=== PATIENT | male | born 1990 | race Caucasian/White ===

== ENCOUNTER 2020-05-01 11:21 | Outpatient (REF) | payer OTHER, SELFPAY | END 2020-05-01 11:22 | disposition home or self-care (01) | LOC: HO.LAB 11:21 | PROVIDERS: PCP Nurse Practitioner Family; Visit Provider Internal Medicine | DX: Z20.828 Contact with and (suspected) exposure to other viral communicable diseases (principal) | CPT/HCPCS: 87635 ==

== ENCOUNTER 2020-06-03 18:35 | Emergency (ER) | payer OTHER, SELFPAY ==
[2020-06-03 18:37] VITALS: BP 142/93; PULSE 61; RESP 16; TEMP 36.1; O2SAT 99; BMI 35.5
--- NOTE | 2020-06-03 21:37 | CT_ITS ---
EXAMINATION: CT HEAD WITHOUT CONTRAST CLINICAL INFORMATION: Head injury. Headache. Nausea COMPARISON: None TECHNIQUE: Contiguous axial imaging was performed from the skull base to vertex without intravenous administration of contrast. Coronal and sagittal reformatted images are performed at CT scanner This CT examination was performed using dose optimization techniques as appropriate, variously including the following: *Automated exposure control *Adjustment of mA and/or kV according to patient size (this includes techniques or standardized protocols for targeted exams where dose is matched to indication/reason for exam; i.e. extremities or head) *Use of iterative reconstruction technique DLP: 940 mGy-cm FINDINGS: There is no evidence of acute intracranial hemorrhage or territorial infarction. No abnormal mass effect or midline shift is seen. Medeiros to white matter differentiation is well preserved. No extra-axial fluid collections are identified. The ventricles are normal in size. There is no abnormal attenuation within the brain parenchyma. The osseous structures and soft tissues are normal. The mastoid air cells and visualized portions of the paranasal sinuses are well aerated. CT/CT head/brain wo con IMPRESSION: No acute intracranial pathology.
--- NOTE | 2020-06-03 22:29 | ED_ITS ---
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 Denies any other symptoms complaints or concerns at this time. Related Data Previous Rx's Medication Instructions Recorded acetaminophen [Tylenol] 650 mg PO Q6H PRN #10 tab 06/03/20 ondansetron HCl [Zofran] 4 mg PO Q8H PRN #14 tab 06/03/20 Allergies Allergy/AdvReac Type Severity Reaction Status Date / Time No Known Allergies Allergy Verified 06/03/20 20:43 Review of Systems Review of Systems: Constitutional : No changes in activity, No lethargy, No recent prior head injury, No agitation, No increased fussiness ENT/Mouth : No Ear Pain, No Nasal discharge/drainage Eyes: No Eye Pain, No Swelling, No Redness, No Foreign Body, No Vision Changes Cardiovascular : No Chest Pain, No SOB Respiratory : No Cough Gastrointestinal : + Nausea, No Vomiting, No abdominal Pain Genitourinary : No Dysuria, No Urinary Frequency, No Urinary Incontinence, No Urgency, No Flank Pain Musculoskeletal : No joint pain, No neck stiffness, No back pain/injury Skin : No lacerations Neuro : No unsteady gait, No Paresthesias, No Loss of Consciousness, No altered mental status, +Headache Yes all other systems are reviewed and are negative [facility] Past Medical History Attestation statement: The following information was validated with the patient. Medical History No known health problems Social History Social History Smoked in Last 30 Days: No Use of substances other than those prescribed or required for medical reasons: No Advance Directives: No Advance Directives Information Provided: No Physical Exam Vital Signs: Vital Signs: Last Vital Signs Temp 97.0 F 06/03/20 18:37 Pulse 61 06/03/20 18:37 Resp 16 06/03/20 18:37 BP 142/93 H 06/03/20 18:37 Pulse Ox 99 06/03/20 18:37 Body Mass Index 35.5 Vital signs have been reviewed as normal and appeared to be correct. Blood pressure normal. Heart rate normal. Respiration rate normal. Temperature normal. Oxygen saturation normal. Appearance: Alert. Oriented X3. No acute distress. Head: Normal external exam. Normocephalic. Atraumatic. Able to rotate head bilaterally. Eyes: PERRLA. EOMI. No nystagmus noted. Conjunctiva and sclera normal. Eyelids normal. Corneal reflex normal. ENT: EAC normal. TM's Normal. Hearing normal. Pharynx normal. Uvula midline. tongue midline. Moist mucous membranes. No trismus noted. No drooling noted. No muffled voice noted. Neck: Normal inspection. Neck supple. FROM. No adenopathy. Thyroid Normal. No meningeal signs. No neck mass noted. CVS: Normal heart rate and rhythm. Heart sound normal. No murmurs noted. Pulses normal throughout. Respiratory: No respiratory distress. Painless inspiration. Breath sounds n ormal. No wheezes/rales/rhonchi noted. Chest nontender. No accessory muscle usage noted or decreased air movement noted. Abdomen: Soft and nontender. Bowel sounds normal in all 4 quadrants. No diste ntion noted. No organomegaly noted. No visible injury noted. Back: No CVA tenderness. Full range of motion noted. Skin: Skin warm and dry. Normal skin color. Normal skin turgor. No rashes/lesions/lacerations noted. Extremities: No lower extremity edema. Extremities exhibit normal range of motion. Extremities nontender. Able to shrug shoulders bilaterally and keep up against resistance. Neuro: Oriented X 3. No motor deficit. No sensory deficit. Reflexes normal. Moving all extremities. No focal motor deficits. Cranial nerves II-XI intact bilaterally. Facial strength normal. Normal cognition. Speech normal. Gait normal. Strength 5/5 throughout. No pronator drift. No tremor noted. No fasciculations noted. Muscle tone normal throughout. No asterixis noted. Owiwwp-[id number] test normal. Heel to flynn test normal. Tandem gait normal. Does not sway with eyes open. Romberg test negative. Rapid alternating movement upper extremity normal. Rapid alternating movement lower extremity normal. Hand drop from overhead-Mrs. face. No rigidity noted. NIHSS score 0. Course Course Course Narrative: 29-year-old male with head injury no loss of conscious is not on any blood thinners. With complaints of headaches and intermittent nausea. Denies any other symptoms complaints or concerns at this time. CT scan of brain obtained and negative for any acute processes. Patient most likely concussion. Will DC home with symptomatic treatment along with instructions return if any new or worsening symptoms to follow-up with primary care provider. Patient understands agrees the plan. MDM - Head Injury Medical Records Attestation: I reviewed the patient's medical records. Imaging Data CT scan - head: Attestation: I personally reviewed and interpreted this imaging study as follows: Radiologist's impression: MPRESSION: No acute intracranial pathology. Discharge Plan Discharge Clinical Impression: Closed head injury, Concussion without loss of consciousness Patient Disposition: Home, Self-Care Instructions: Concussion (ED) Prescriptions: New acetaminophen [Tylenol] 325 mg tablet 650 mg PO Q6H PRN (Reason: fever or pain) Qty: 10 RF: 0 ondansetron HCl [Zofran] 4 mg tablet 4 mg PO Q8H PRN (Reason: nausea and vomiting) Qty: 14 RF: 0 Referrals: Rl Khalil, TELEPHONE CLERK-BC [Primary Care Provider] - 2 days Stand Alone Forms: Work/School Release Print Language: Georgian
[2020-06-03 22:49] VITALS: BP 132/89; PULSE 66; RESP 16; TEMP 36.6; O2SAT 100
== END 2020-06-03 22:51 | disposition home or self-care (01) ==
PROVIDERS: Emergency Provider Emergency Medicine Emergency Medical Services; PCP Nurse Practitioner Family
DX: S06.0X0A Concussion without loss of consciousness, initial encounter (principal); W22.09XA Striking against other stationary object, initial encounter; Y93.89 Activity, other specified; Y92.810 Car as the place of occurrence of the external cause; Y99.0 Civilian activity done for income or pay
CPT/HCPCS: 70450; 99284

== ENCOUNTER → 2020-06-04 09:26 | Outpatient (BNVA) | payer OTHER, SELFPAY | PROVIDERS: PCP Nurse Practitioner Family; Visit Provider Internal Medicine | DX: S06.0X0A Concussion without loss of consciousness, initial encounter (principal); X58.XXXA Exposure to other specified factors, initial encounter | CPT/HCPCS: 99202 ==

== ENCOUNTER → 2020-06-06 08:26 | Outpatient (BNVA) | payer OTHER, SELFPAY | PROVIDERS: PCP Nurse Practitioner Family; Visit Provider Internal Medicine | DX: S06.9X0D Unspecified intracranial injury without loss of consciousness, subsequent encounter (principal); X58.XXXD Exposure to other specified factors, subsequent encounter | CPT/HCPCS: 99213 ==

== ENCOUNTER → 2020-06-11 11:38 | Outpatient (BNVA) | payer OTHER, SELFPAY | PROVIDERS: PCP Nurse Practitioner Family; Visit Provider Internal Medicine | DX: S06.9X0D Unspecified intracranial injury without loss of consciousness, subsequent encounter (principal); X58.XXXD Exposure to other specified factors, subsequent encounter; R51.9 Headache, unspecified; H57.12 Ocular pain, left eye | CPT/HCPCS: 99213 ==

== ENCOUNTER → 2020-06-18 10:19 | Outpatient (BNVA) | payer OTHER, SELFPAY | PROVIDERS: PCP Nurse Practitioner Family; Visit Provider Internal Medicine | DX: S06.9X0D Unspecified intracranial injury without loss of consciousness, subsequent encounter (principal); X58.XXXD Exposure to other specified factors, subsequent encounter; R51.9 Headache, unspecified; R11.0 Nausea | CPT/HCPCS: 99213 ==

== ENCOUNTER 2021-02-09 20:37 | Emergency (ER) | payer OTHER, SELFPAY ==
--- NOTE | ~2021-02-09 | XR_ITS ---
EXAMINATION: XR ELBOW, RIGHT CLINICAL INFORMATION: Fall yesterday COMPARISON: None TECHNIQUE: AP, lateral, and oblique views of the right elbow. FINDINGS: No fracture or dislocation. No joint effusion. No appreciable degenerative changes. No focal soft tissue swelling. No radiopaque foreign body. XR/XR elbow RT min 3V IMPRESSION: Unremarkable radiographs of the right elbow.
[2021-02-09 20:39] VITALS: BP 138/86; PULSE 82; RESP 18; O2SAT 95; BMI 33.2
--- NOTE | 2021-02-09 21:57 | ED.EXTPRO ---
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 Denies head trauma or LOC. Denies numbness, tingling, weakness. Denies decreased range of motion, injury to the area MD Complaint: joint paint Related Data Previous Rx's Medication Instructions Recorded acetaminophen 325 mg tablet 650 mg PO Q6H PRN #10 tab 06/03/20 (Tylenol) ondansetron HCl 4 mg tablet 4 mg PO Q8H PRN #14 tab 06/03/20 (Zofran) Allergies Allergy/AdvReac Type Severity Reaction Status Date / Time No Known Allergies Allergy Verified 02/09/21 20:39 Review of Systems Review of Systems: Constitutional: No Fever, No Chills Musculoskeletal: + joint pain, No Myalgias, No Joint Swelling Skin: No Skin Lesions, No rash Neuro: No Weakness, No Numbness, No Paresthesias, no headache/head injury, no LOC Yes all other systems are reviewed and are negative [facility] Past Medical History Attestation statement: The following information was validated with the patient. Medical History (Updated 02/09/21 @ 22:00 by BRITNI Suh) No known health problems Family History Family History (Updated 07/18/20 @ 13:32 by Consuelo Gamez, RMA, REHABILITATION WORKER) Father Diabetes mellitus Mother No problems noted. Brother No problems noted. Brother No problems noted. Social History Social History Advance Directives: No Advance Directives Information Provided: Yes Physical Exam Vital Signs: Vital Signs: Last Vital Signs Pulse 82 02/09/21 20:39 Resp 18 02/09/21 20:39 BP 138/86 02/09/21 20:39 Pulse Ox 95 02/09/21 20:39 Body Mass Index 33.2 Const: General: cooperative and healthy appearing Orientation/consciousness: patient oriented x3 Limitations: no limitations HENMT: Head: Yes normal to inspection Ears: hearing grossly normal bilaterally General nose exam: Normal external nose present Face and sinus: Yes normal facial exam Eyes: General: appearance normal, both eyes and all related structures EOM: EOMs intact bilaterally Neck: Neck: Yes normal visual inspection Resp: Effort & Inspection: normal respiratory effort and no respiratory distress Cardio: Rate: regular rate Peripheral pulses: radial pulses present Skin: Rashes: no rashes Neuro: General: patient oriented x3, tone normal and moves all extremities Gait exam (Neuro): Normal gait present Extrem: Other: Superficial abrasions noted to right distal forearm/elbow. +ttp to distal forearm. No swelling/ecchymosis or cellulitis. FROM intact to shoulder/elbow/hand/wrist. NV intact. Supination/pronation intact Course Course Course Narrative: XR elbow RT min 3V IMPRESSION: Unremarkable radiographs of the right elbow. >> results discussed with patient including worrisome signs and symptoms and strict return precautions Discharge Plan Discharge Clinical Impression: Injury of right upper arm Qualifiers: Encounter type: initial encounter Qualified Code(s): S49.91XA - Unspecified injury of right shoulder and upper arm, initial encounter Patient Disposition: Home, Self-Care Instructions: Arthralgia (ED) Additional Instructions: Your x-rays were unremarkable Ice, rest Take Tylenol & Motrin at home for pain If pain persists or worsens, becomes unbearable, you have weakness, numbness, tingling, or fever please return to the ED Prescriptions: No Action acetaminophen [Tylenol] 325 mg tablet 650 mg PO Q6H PRN (Reason: fever or pain) Qty: 10 RF: 0 ondansetron HCl [Zofran] 4 mg tablet 4 mg PO Q8H PRN (Reason: nausea and vomiting) Qty: 14 RF: 0 Referrals: [facility] [Outside] - 1 week (As needed)
== END 2021-02-09 22:09 | disposition home or self-care (01) ==
PROVIDERS: Emergency Provider Emergency Medicine Emergency Medical Services; PCP Nurse Practitioner Family
DX: S49.91XA Unspecified injury of right shoulder and upper arm, initial encounter (principal); M25.511 Pain in right shoulder; W01.0XXA Fall on same level from slipping, tripping and stumbling without subsequent striking against object, initial encounter; Y93.02 Activity, running; Y99.0 Civilian activity done for income or pay; Z79.899 Other long term (current) drug therapy
CPT/HCPCS: 73080; 99283

== ENCOUNTER → 2021-02-10 08:53 | Outpatient (BNVA) | payer OTHER, SELFPAY | PROVIDERS: PCP Nurse Practitioner Family; Visit Provider Internal Medicine | DX: S50.01XA Contusion of right elbow, initial encounter (principal); S46.811A Strain of other muscles, fascia and tendons at shoulder and upper arm level, right arm, initial encounter; W22.8XXA Striking against or struck by other objects, initial encounter | CPT/HCPCS: 99202 ==

== ENCOUNTER 2021-03-18 02:01 | Emergency (ER) | payer OTHER, SELFPAY ==
--- NOTE | ~2021-03-18 | XR_ITS ---
EXAMINATION: XR CHEST CLINICAL INFORMATION: Tachycardia COMPARISON: 07/22/2019 TECHNIQUE: Frontal view of the chest was obtained. FINDINGS: Lungs are hypoinflated. No focal consolidation is seen. No evidence of pneumothorax, pleural effusion, or pulmonary edema. The cardiomediastinal contour is unremarkable. No acute osseous findings are seen. XR/XR chest 1V IMPRESSION: No acute cardiopulmonary findings.
--- NOTE | ~2021-03-18 | US_ITS ---
EXAMINATION: US ABDOMEN LIMITED CLINICAL INFORMATION: Right upper quadrant pain. COMPARISON: 07/03/2019 TECHNIQUE: Real-time imaging of the right upper quadrant abdominal viscera. FINDINGS: PANCREAS: Obscured by overlying bowel gas. LIVER: Limited views of the left lobe due to overlying bowel gas. The liver is normal in size. The liver contour is normal. Parenchymal echogenicity is normal. No focal hepatic lesion identified. There is no intrahepatic biliary duct dilatation seen. GALLBLADDER: The gallbladder is physiologically distended without evidence of stones, sludge, polyps, wall thickening or pericholecystic fluid. COMMON BILE DUCT: Normal in caliber measuring 0.4 cm in diameter. RIGHT KIDNEY: No hydronephrosis. No renal calculi or focal parenchymal lesions. The kidney measures 12.5 cm in maximum dimension. FREE FLUID: None. US/US abdomen limited IMPRESSION: No acute findings identified. Partially limited evaluation due to bowel gas.
[2021-03-18 02:12] VITALS: BP 142/91; PULSE 140; RESP 20; TEMP 36.5; O2SAT 96; BMI 37.4
[2021-03-18 02:24] VITALS: TEMP 37.9
[2021-03-18 02:30] VITALS: PULSE 112; RESP 16; TEMP 37.7
--- NOTE | 2021-03-18 02:32 | ED_ITS ---
HPI - General Adult General Chief complaint: Upper Respiratory Symptoms Stated complaint: covid symptoms Time Seen by Provider: 03/18/21 02:07 Source: patient Mode of arrival: ambulatory History of Present Illness HPI narrative: 30-year-old male without significant past medical history who states that he has been at home taking care of his child who is sick with [id number] and states that this evening he went to bed and felt very warm, tried kicking off the covers, could not get comfortable and then felt as though he might be having a fever and when checked was noted to be 103?. Patient denies any stiff neck and reports being up-to-date on all childhood vaccinations. He states that he took some Tylenol, 650 mg, and then temp to take a cold shower after he had retaken his temperature and noted that it was 104.5. Patient states that he felt very fatigued and tired, however denies any cough, GI or symptoms but does report mild sore throat and denies any ear pain. Related Data Previous Rx's Medication Instructions Recorded acetaminophen 325 mg tablet 650 mg PO Q6H PRN #10 tab 06/03/20 (Tylenol) ondansetron HCl 4 mg tablet 4 mg PO Q8H PRN #14 tab 06/03/20 (Zofran) Allergies Allergy/AdvReac Type Severity Reaction Status Date / Time No Known Allergies Allergy Verified 02/09/21 20:39 Review of Systems Review of Systems: Pertinent positives and negatives as stated in HPI 10 point review of systems is otherwise negative. [facility] Past Medical History Source: nursing notes reviewed Medical History No known health problems Family History Family History Father Diabetes mellitus Mother No problems noted. Brother No problems noted. Brother No problems noted. Social History Social History Advance Directives: No Physical Exam Vital Signs: Vital Signs: Last Vital Signs Temp 99.7 F 03/18/21 05:36 Pulse 104 H 03/18/21 05:36 Resp 16 03/18/21 05:36 BP 133/76 03/18/21 05:36 Pulse Ox 98 03/18/21 05:36 Body Mass Index 37.4 VITAL SIGNS: Reviewed. GENERAL: Well developed, well nourished, in no acute distress. HEAD: Normocephalic/atraumatic, EYES: PERRLA, EOMI EARS: Ext canals without abnormality, TMs non-bulging and non-erythematous NOSE: Nares patent bilateral OROPHARYNX: no oral lesions noted, posterior pharynx clear with noted tonsillar enlargement/erythema/exudates NECK: Supple, no adenopathy LUNGS: Normal breath sounds. No adventitious sounds or accessory muscle use. SpO2<96> CARDIOVASCULAR: Regular rate and rhythm without noted murmurs, no JVD or lower extremity edema. ABDOMEN: Soft, non-tender, non-distended with bowel sounds. SKIN: Inspection of the skin reveals no rashes, but diaphoretic NEUROLOGIC: Alert and oriented x 4. Strength and sensation to light touch were grossly intact x 4. Course Course Course Narrative: 30-year-old male with history and clinical presentation suggestive of possible COVID but patient has limited symptoms and no obvious intra oral or palm/sole rash. Low clinical suspicion for meningitis. Of note, patient was never documented to be febrile here in the emergency room. Review of all investigations otherwise negative for etiology of patient's febrile state. On re-evaluation patient has had complete resolution of his elevated temperature and is feeling much better. On review of lab work there was a noted LFT abnormality and follow-up ultrasound was negative for any acute findings. All results were discussed with the patient at bedside and he was recommended to continue with increasing fluid hydration, alternating Tylenol and ibuprofen and follow-up with primary care provider. Medical Decision Making Lab Data Result diagrams: 03/18/21 03:16 03/18/21 03:16 Labs: Lab Results 03/18/21 03/18/21 03/18/21 Range/Units 02:11 02:40 03:16 WBC 8.9 (4.8-10.8) X10*3/uL RBC 5.49 (4.60-5.80) X10*6/uL Hgb 16.4 (14.0-18.0) g/dl Hct 46.8 (42-52) % MCV 85.2 (80-98) fL MCH 29.9 (27.0-33.0) pg MCHC 35.0 (31.0-36.0) g/dl RDW 11.6 (11.0-16.0) % Plt Count 161 (160-400) X10*3/uL MPV 9.3 L (9.4-12.4) fL Immature Gran % (Auto) 0.2 (0.0-0.4) % Neut % (Auto) 85.1 H (45-73) % Lymph % (Auto) 6.2 L (20-40) % [place] % (Auto) 7.8 (2-11) % Eos % (Auto) 0.5 (0-4) % Baso % (Auto) 0.2 (0-2) % Lymph # (Auto) 0.6 L (1.2-4.9) X10*3/uL [place] # (Auto) 0.7 (0.1-1.2) X10*3/uL Eos # (Auto) 0.0 (0.0-0.4) X10*3/uL Baso # (Auto) 0.0 (0.0-0.2) X10*3/uL Abs Immat Gran (auto) 0.02 (0.00-0.03) X10*3/uL Absolute Neuts (auto) 7.6 (2.0-8.3) X10*3/uL Absolute Nucleated RBC 0.000 (0.0-0.012) X10*3/uL Nucleated RBC % (auto) 0.0 (0.0-0.2) /100WBC Sodium (135-145) mmol/L Potassium (3.3-5.1) mmol/L Chloride (96-108) mmol/L Carbon Dioxide (22-29) mmol/L Anion Gap (12-20) BUN (9-16) mg/dL Creatinine (0.5-1.4) mg/dL Estim Creat Clear Calc Estimated GFR Random Glucose (60-115) mg/dL Calcium (8.4-10.2) mg/dL Total Bilirubin (0.0-1.0) mg/dL AST (5-37) U/L ALT (0-40) U/L Alkaline Phosphatase (39-117) U/L Total Protein (6.5-8.0) g/dL Albumin (3.5-5.0) g/dL Coronavirus (PCR) (Negative) COVID-19 (BRIANNA) Negative (Negative) COVID-19 Clin Com See Note Influenza Type A (PCR) (Negative) Influenza Type B (PCR) (Negative) RSV RNA Qual (PCR) (Negative) S. pyogenes GrpA SANDI Negative (Negative) 03/18/21 03/18/21 Range/Units 03:16 03:21 WBC (4.8-10.8) X10*3/uL RBC (4.60-5.80) X10*6/uL Hgb (14.0-18.0) g/dl Hct (42-52) % MCV (80-98) fL MCH (27.0-33.0) pg MCHC (31.0-36.0) g/dl RDW (11.0-16.0) % Plt Count (160-400) X10*3/uL MPV (9.4-12.4) fL Immature Gran % (Auto) (0.0-0.4) % Neut % (Auto) (45-73) % Lymph % (Auto) (20-40) % [place] % (Auto) (2-11) % Eos % (Auto) (0-4) % Baso % (Auto) (0-2) % Lymph # (Auto) (1.2-4.9) X10*3/uL [place] # (Auto) (0.1-1.2) X10*3/uL Eos # (Auto) (0.0-0.4) X10*3/uL Baso # (Auto) (0.0-0.2) X10*3/uL Abs Immat Gran (auto) (0.00-0.03) X10*3/uL Absolute Neuts (auto) (2.0-8.3) X10*3/uL Absolute Nucleated RBC (0.0-0.012) X10*3/uL Nucleated RBC % (auto) (0.0-0.2) /100WBC Sodium 137 (135-145) mmol/L Potassium 4.0 (3.3-5.1) mmol/L Chloride 107 (96-108) mmol/L Carbon Dioxide 21 L (22-29) mmol/L Anion Gap 13 (12-20) BUN 16 (9-16) mg/dL Creatinine 1.01 (0.5-1.4) mg/dL Estim Creat Clear Calc 167.4 Estimated GFR > 60 Random Glucose 105 (60-115) mg/dL Calcium 9.4 (8.4-10.2) mg/dL Total Bilirubin 1.4 H (0.0-1.0) mg/dL AST 53 H (5-37) U/L ALT 72 H (0-40) U/L Alkaline Phosphatase 77 (39-117) U/L Total Protein 7.2 (6.5-8.0) g/dL Albumin 4.5 (3.5-5.0) g/dL Coronavirus (PCR) NEGATIVE (Negative) COVID-19 (BRIANNA) (Negative) COVID-19 Clin Com Influenza Type A (PCR) NEGATIVE (Negative) Influenza Type B (PCR) NEGATIVE (Negative) RSV RNA Qual (PCR) NEGATIVE (Negative) S. pyogenes GrpA SANDI (Negative) Discharge Plan Discharge Clinical Impression: Fever Patient Disposition: Home, Self-Care Instructions: Fever in Adults (ED) Additional Instructions: Recommend increasing fluid hydration and using [id number] Tylenol on ibuprofen. Follow-up with your primary care provider in the next 2-3 days for re- evaluation. Return to the ER for acute worsening of symptoms. Prescriptions: No Action acetaminophen [Tylenol] 325 mg tablet 650 mg PO Q6H PRN (Reason: fever or pain) Qty: 10 RF: 0 ondansetron HCl [Zofran] 4 mg tablet 4 mg PO Q8H PRN (Reason: nausea and vomiting) Qty: 14 RF: 0 Referrals: Rl Khalil, PHYSICAL SCIENCE TEACHER-BC [Primary Care Provider] - 2 days
[2021-03-18 02:46] LABS: COVID-19 Test Negative (Negative)
[2021-03-18 02:54] LABS: Strep A Nucleic Acid Negative (Negative)
[2021-03-18 02:58] VITALS: PULSE 104
[2021-03-18 03:20] LABS: MANUAL DIFF FLAG NO
[2021-03-18 03:23] LABS: Basophils Percent Auto 0.2 % (0-2); Eosinophils Percent Auto 0.5 % (0-4); Hematocrit 46.8 % (42-52); Hemoglobin 16.4 g/dl (14.0-18.0); Imm Gran Abs Auto 0.02 X10*3/uL (0.00-0.03); Imm Gran Pct Auto 0.2 % (0.0-0.4); Lymphocytes Absolute Auto 0.6 X10*3/uL (1.2-4.9); Lymphocytes Percent Auto 6.2 % (20-40); Mean Corpuscular Hemoglobin 29.9 pg (27.0-33.0); Mean Corpuscular Volume 85.2 fL (80-98); Mean Platelet Volume 9.3 fL (9.4-12.4); Monocytes Absolute Auto 0.7 X10*3/uL (0.1-1.2); Monocytes Percent Auto 7.8 % (2-11); Neutrophils Absolute Auto 7.6 X10*3/uL (2.0-8.3); Neutrophils Percent Auto 85.1 % (45-73); Platelet Count 161 X10*3/uL (160-400); Red Blood Count 5.49 X10*6/uL (4.60-5.80); Red Cell Distribution Width 11.6 % (11.0-16.0); White Blood Count 8.9 X10*3/uL (4.8-10.8)
[2021-03-18 03:55] LABS: Alanine Aminotransferase 72 U/L (0-40); Albumin Level 4.5 g/dL (3.5-5.0); Alkaline Phosphatase 77 U/L (39-117); Anion Gap 13 (12-20); Aspartate Amino Transferase 53 U/L (5-37); Bilirubin Total 1.4 mg/dL (0.0-1.0); Blood Urea Nitrogen 16 mg/dL (9-16); Calcium 9.4 mg/dL (8.4-10.2); Carbon Dioxide 21 mmol/L (22-29); Chloride 107 mmol/L (96-108); Creatinine Clr Calc Pharmacy 167.4; Estimated Glomerular Filt Rate > 60; Glucose Random 105 mg/dL (60-115); Sodium 137 mmol/L (135-145); Total Protein 7.2 g/dL (6.5-8.0)
[2021-03-18 04:20] LABS: Influenza A PCR NEGATIVE (Negative); Influenza B PCR NEGATIVE (Negative); Resp Syncy Virus RNA Qual PCR NEGATIVE (Negative); SARS COV2 PCR INHOUSE NEGATIVE (Negative)
--- NOTE | 2021-03-18 05:03 | PC.NURSE ---
pt off to ultrasound
--- NOTE | 2021-03-18 05:32 | PC.NURSE ---
pt back from ultrasound
[2021-03-18 05:36] VITALS: BP 133/76; PULSE 104; RESP 16; TEMP 37.6; O2SAT 98
[2021-03-18] MEDS: Acetaminophen 325 MG TABLET 650 MG PO (06:38)
[2021-03-18 07:24] VITALS: BP 125/72; PULSE 100; RESP 18; TEMP 37.4; O2SAT 98
== END 2021-03-18 07:33 | disposition home or self-care (01) ==
PROVIDERS: Emergency Provider Student in an Organized Health Care Education/Training Program; PCP Nurse Practitioner Family
DX: R50.9 Fever, unspecified (principal); Z79.899 Other long term (current) drug therapy; Z20.822 Contact with and (suspected) exposure to COVID-19
CPT/HCPCS: 0241U; 36415; 71045; 76705; 80053; 85025; 87635; 87651; 99284

== ENCOUNTER 2023-05-09 13:31 | Outpatient (AMB) | payer OTHER, SELFPAY ==
--- NOTE | 2023-05-09 13:34 | MHC.PC.OV ---
Vital Signs 05/09/23 13:40 Weight 304 lb BP 112/80 Blood Pressure Location Lt brachial Position Sitting Pulse 66 Pulse Source Pulse Oximeter Pulse Oximetry (%) 99 Oxygen Delivery Method Room Air Intake Visit Reasons: Annual Exam Allergies No Known Allergies Allergy (Verified 05/09/23 13:40) Medication List - Last Reconciled 05/09/23 by VANDA Vega No Known Home Meds Dental Screening Dental Screen Date: 05/09/23 Did you have a dental visit in the last 12 months?: Yes Did you have a dental problem in the last 6 months where you did not have access to dental care?: No Was dental information given to patient?: Patient has dentist HPI Annual Exam HPI Details Pt is here for a PE. Will order labs. 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 Will check a hep panel. Pt needs inhalers filled for asthma, will fill. [facility] Medical History No known health problems Family History Father Diabetes mellitus Mother No problems noted. Brother No problems noted. Brother No problems noted. Social History Housing: House Patient Tobacco Use Status: Never used Tobacco service: No Current occupational status: employed Cognitive needs: No Hearing needs: No Vision needs: No Questionnaire AUDIT C Alcohol Use Questionnaire (AUDIT-C) 1. How often do you have a drink containing alcohol?: Never 3. How often do you have six or more drinks on one occasion?: Never Total Score: 0 Score Reviewed/Action Taken: No Review of Systems Const Denies chills and Denies fever(s) Eyes Denies blurry vision ENT Denies vertigo, Denies dizziness and Denies sore throat Card Denies chest pain at rest, Denies chest pain with activity, Denies diaphoresis, Denies dyspnea and Denies dyspnea on exertion Resp Denies cough, Denies dyspnea, Denies dyspnea on exertion and Denies wheezing GI Denies abdominal pain, Denies melena, Denies hematochezia, Denies constipation, Denies diarrhea and Denies loose stools Denies hematuria Musc Denies numbness and Denies tingling Skin/Breast Denies lesions Neuro Denies vertigo, Denies dizziness, Denies numbness and Denies tingling Psych Denies anxiety, Denies depression, Denies homicidal ideation, Denies suicidal ideation and Denies other (substance abuse) Aller/Immun Denies wheezing Physical exam (Primary Care) Vital Signs: Last Vital Signs Pulse 66 05/09/23 13:40 BP 112/80 05/09/23 13:40 Pulse Ox 99 05/09/23 13:40 Oxygen Delivery Method Room Air 05/09/23 13:40 Tobacco/Smoking Status: Tobacco use Status Patient Tobacco Use Status Never used Tobacco 05/09/23 13:35 Const General: cooperative Nutritional Appearance: well nourished and obese Orientation/consciousness: patient oriented x3 HENMT Head: Yes normal to inspection, Yes normocephalic and Yes atraumatic Ears: TM's normal bilaterally Eyes General: appearance normal, both eyes and all related structures Alignment and Position: alignment normal and position normal Neck Neck: Yes normal visual inspection and Yes no lymphadenopathy Thyroid: Thyroid normal Resp Effort & Inspection: normal respiratory effort Auscultation: clear to auscultation bilaterally Cardio Rate: regular rate Rhythm: regular rhythm Heart sounds: S1 normal heart sound present, S2 normal heart sound present and no murmurs GI Palpation (GI): Soft to palpation and nontender Auscultation: normal bowel sounds Male General Exam: Yes normal external exam Penis: normal penis Scrotum: scrotum normal, testes descended bilaterally and no inguinal hernias Testes: no testicular mass Skin Rashes: no rashes Neuro General: patient oriented x3, moves all extremities, no focal motor deficits and deep tendon reflexes 2+ bilaterally Romberg Test: Negative Psych Appearance: grossly normal Mental Status: mental status grossly normal Speech and movement: Normal speech and movement present Affect: normal affect Attitude: cooperative Thought process: Normal thought process present Thought content: Normal thought content present Insight: Good insight present (Psych) Judgement: Good judgement present (Psych) Assessment and Plan Assessment & Plan (1) Physical exam: Code(s): Z00.00 - Encounter for general adult medical examination without abnormal findings Plan: Labs ordered (2) Exposure to viral hepatitis: Code(s): Z20.5 - Contact with and (suspected) exposure to viral hepatitis Plan: Hepatitis panel ordered (3) Asthma: Code(s): J45.909 - Unspecified asthma, uncomplicated Plan: ventolin and flovent sent Plan The patient agreed to the use of a clinical laboratory medical director for this encounter. Scribed for CORRIE Cabral by Sujatha Clarke clinical laboratory medical director, on 05/09/2023 at 13:45 EST. Orders: Orders Comprehensive [place]. Panel Fast Today Z00.00 - Encounter for general adult medical examination without abnormal findings TSH reflex Free T4 Today Z00.00 - Encounter for general adult medical examination without abnormal findings Complete Blood Count Auto Diff Today Z00.00 - Encounter for general adult medical examination without abnormal findings UA CC w/rflx Micro + Cult Today Z00.00 - Encounter for general adult medical examination without abnormal findings Lipid Panel Today Z00.00 - Encounter for general adult medical examination without abnormal findings Hepatitis A,B,C Profile Today Z20.5 - Contact with and (suspected) exposure to viral hepatitis Medications: New albuterol sulfate 90 mcg/actuation (Ventolin HFA) 1 inh inhalation QID PRN 8.5 grams 3RF shortness of breath or wheezing fluticasone propionate 44 mcg/actuation (Flovent HFA) administer with spacer, please rinse mouth out with water after use 1 puff inhalation BID 10.6 grams 3RF Coding Level of Care Code Est Pt Prev Care 18-39y(55546) Diagnoses Physical exam Z00.00 Exposure to viral hepatitis Z20.5 Asthma J45.909
[2023-05-09 13:40] VITALS: BP 112/80; PULSE 66; O2SAT 99
== END 2023-05-09 14:31 | disposition home or self-care (01) ==
PROVIDERS: PCP Nurse Practitioner Family; Visit Provider Nurse Practitioner Family
DX: Z00.00 Encounter for general adult medical examination without abnormal findings (principal); Z20.5 Contact with and (suspected) exposure to viral hepatitis; J45.909 Unspecified asthma, uncomplicated
CPT/HCPCS: 99395

== ENCOUNTER 2024-03-15 09:20 | Outpatient (AMB) | payer BC, SELFPAY ==
[2024-03-15 09:20] VITALS: BP 122/84; PULSE 63; TEMP 36.7; O2SAT 98; BMI 36.4
--- NOTE | 2024-03-15 09:20 | AM.OFFWIN_ITS ---
Intake Vital Signs 03/15/24 09:20 03/15/24 09:45 Height 6 ft 6 in Weight 315 lb BMI 36.4 BP 122/84 118/82 Blood Pressure Location Lt brachial Lt brachial Position Sitting Sitting Pulse 63 Pulse Source Pulse Oximeter Temp 98.1 F Temp Source Oral Pulse Oximetry (%) 98 Oxygen Delivery Method Room Air Intake Visit Reasons: EP High BP, headache Intake Note: pt c/o elevated BP and headache. Started a week ago. Had GI virus Tuesday and Tuesday last week, cleared Tuesday. [place] Normal Tuesday to Tuesday, Body aches and headaches started again on Tuesday. BP 156/109 yesterday. Repeated high readings 140s-170s/ 90-110 since yesterday. Patient Tobacco Use Status: Never used Tobacco Allergies No Known Allergies Allergy (Verified 03/15/24 09:21) Do you need a note to return to daycare/school/sports/work: No HPI HPI Comments History of Present Illness Details Patient is a 33-year-old male complaining of elevated BP and headache x7d. He states he had GI virus with diarrhea 9 days ago which resolved 6 days ago. Then body aches and headaches started again 4 days ago. He is randomly been checking his blood pressures, he had a BP 156/109 yesterday. Repeated high readings 140s-170s/ 90-110 since yesterday. He states that every now and then he will randomly have blurry vision, he has not seen an eye doctor but he knows he needs glasses. He also tells me he works until midnight, gets up at 5:30am with 2 small children and his has had multiple surgeries in the last 3 years. He states he is normally very chill but he is concerned as his twin brother is on 5mg lisinopril and his dad and many other family members are on 40mg lisinopril as well. REPLACED BY [facility] Medical History No known health problems Family History Father Diabetes mellitus Mother No problems noted. Brother No problems noted. Brother No problems noted. Social History Housing: House Patient Tobacco Use Status: Never used Tobacco service: No Current occupational status: employed Cognitive needs: No Hearing needs: No Vision needs: No Review of Systems Const All systems reviewed & are unremarkable except as noted in HPI and below Physical Exam Vital Signs: Last Vital Signs Temp 98.1 F 03/15/24 09:20 Pulse 63 03/15/24 09:20 BP 122/84 03/15/24 09:20 Pulse Ox 98 03/15/24 09:20 Oxygen Delivery Method Room Air 03/15/24 09:20 BMI result Body Mass Index 36.4 Const General: cooperative, healthy appearing, comfortable, no acute distress and well developed Orientation/consciousness: patient oriented x3 Limitations: no limitations HEENT Head: Yes normal to inspection Ears: hearing grossly normal bilaterally General nose exam: Normal external nose present Face and sinus: Yes normal facial exam Eyes General: appearance normal, both eyes and all related structures Neck Neck: Yes normal visual inspection and Yes full ROM Resp Effort & Inspection: normal respiratory effort and able to speak in complete sentences Skin General skin exam: no rashes or lesions noted Neuro General: patient oriented x3 Extrem General: Yes normal to inspection Assessment & Plan Assessment & Plan (1) Elevated blood pressure reading in office without diagnosis of hypertension: Code(s): R03.0 - Elevated blood-pressure reading, without diagnosis of hypertension Plan: When using an appropriate sized cuff, his blood pressure was 118/82. Educated patient on how to make sure the cuff is an appropriate size and advised the automatic ones that he is likely using is probably meant for a much smaller person and he is getting falsely elevated readings. Recommended he speak with the pharmacist to order an appropriately sized cuff, log his blood pressures 3 times a day for the next 1-2 weeks and follow up with his PCP. We did get him an appointment with his PCP on April 09 to review the log and possibly initiate medication if necessary. Also asked him to sign up for the portal so that if his readings are very high, he can communicate that and maybe move his appointment up sooner. Did give him red flag warning signs and when to go to the emergency department. With his recent GI illness and headaches, we did get a COVID swab as well. Plan See above Orders: Orders SARS-CoV2/FLU/RSV Today J06.9 - Acute upper respiratory infection, unspecified Coding Level of Care Code Est Pt Level 4 (66970) Diagnoses Elevated blood pressure reading in office without diagnosis of hypertension R03.0
[2024-03-15 09:45] VITALS: BP 118/82
== END 2024-03-15 10:03 | disposition home or self-care (01) ==
PROVIDERS: PCP Nurse Practitioner Family; Visit Provider Physician Assistant
DX: R03.0 Elevated blood-pressure reading, without diagnosis of hypertension (principal)
CPT/HCPCS: 99214

== ENCOUNTER 2024-03-15 09:36 | Outpatient (REF) | payer BC, SELFPAY ==
[2024-03-15 14:29] LABS: Influenza A PCR NEGATIVE (Negative); Influenza B PCR NEGATIVE (Negative); Resp Syncy Virus RNA Qual PCR NEGATIVE (Negative); SARS COV2 PCR INHOUSE NEGATIVE (Negative)
== END 2024-03-15 09:37 | disposition home or self-care (01) ==
LOC: HO.LAB 09:36
PROVIDERS: Visit Provider Physician Assistant
DX: J06.9 Acute upper respiratory infection, unspecified (principal)
CPT/HCPCS: 0241U

== ENCOUNTER 2024-03-15 09:55 | Outpatient (REF) | payer BC, SELFPAY ==
[2024-03-15 13:21] LABS: Appearance Urine Clear; Color Urine Yellow; Glucose Urine UA Negative (Negative); Leukocyte Esterase Urine Negative (Negative); Nitrite Urine Negative (Negative); Specific Gravity - Urine 1.025 (1.005-1.025); Urine Blood Negative (Negative); Urine Ketones Negative (Negative); Urine Protein Negative (Neg-Trace)
[2024-03-15 13:24] LABS: MANUAL DIFF FLAG NO
[2024-03-15 13:58] LABS: Alanine Aminotransferase 62 U/L (0-40); Albumin Level 4.4 g/dL (3.5-5.0); Alkaline Phosphatase 74 U/L (39-117); Anion Gap 11 (12-20); Aspartate Amino Transferase 37 U/L (5-37); Basophils Percent Auto 0.7 % (0-2); Bilirubin Total 0.7 mg/dL (0.0-1.0); Blood Urea Nitrogen 14 mg/dL (9-16); Calcium 9.6 mg/dL (8.4-10.2); Carbon Dioxide 26 mmol/L (22-29); Chloride 108 mmol/L (96-108); Cholesterol 182 mg/dL (<200); Eosinophils Absolute Auto 0.1 X10*3/uL (0.0-0.4); Estimated Glomerular Filt Rate > 60; Glucose Fasting 87 mg/dL (60-99); HDL Cholesterol 50 mg/dL (>40); Hematocrit 47.5 % (42.0-52.0); Hemoglobin 16.3 g/dl (14.0-18.0); Imm Gran Abs Auto 0.02 X10*3/uL (0.00-0.03); Imm Gran Pct Auto 0.4 % (0.0-0.4); LDL Cholesterol Calculated 120 mg/dL (<100); Lymphocytes Absolute Auto 1.5 X10*3/uL (1.2-4.9); Lymphocytes Percent Auto 26.3 % (20-40); Mean Corpuscular HGB Conc 34.3 g/dl (31.0-36.0); Mean Corpuscular Hemoglobin 29.8 pg (27.0-33.0); Mean Corpuscular Volume 86.8 fL (80.0-98.0); Mean Platelet Volume 9.9 fL (9.4-12.4); Monocytes Absolute Auto 0.4 X10*3/uL (0.1-1.2); Monocytes Percent Auto 7.5 % (2-11); Neutrophils Absolute Auto 3.6 x10*3/uL (2.0-8.3); Neutrophils Percent Auto 63.1 % (45-73); Platelet Count 212 X10*3/uL (160-400); Potassium 4.3 mmol/L (3.3-5.1); Red Blood Count 5.47 X10*6/uL (4.60-5.80); Red Cell Distribution Width 12.2 % (11.0-16.0); Sodium 141 mmol/L (135-145); Total Protein 7.2 g/dL (6.5-8.0); Triglycerides 60 mg/dL (<150); White Blood Count 5.6 X10*3/uL (4.8-10.8)
[2024-03-15 14:13] LABS: TSH reflex Free T4 0.87 uIU/mL (0.32-4.0)
[2024-03-16 04:04] LABS: Hepatitis A Antibody IgM 0.17 Index (0-0.79); ~Hepatitis A Antibody IgM Nonreactive (Nonreactive)
[2024-03-16 04:20] LABS: HBS Num1 230.42 mIU/mL (0-7.99); HBc Num1 0.41 S/CO (0.00-0.79); Hepatitis B Core Antibody Nonreactive (Nonreactive); Hepatitis B Surface Antigen Negative (Negative); ~Hepatitis B Surface Antibody REACTIVE (Nonreactive); ~Hepatitis C Antibody Nonreactive (Nonreactive)
== END 2024-03-15 09:56 | disposition home or self-care (01) ==
LOC: HO.HMGCLDS 09:55
PROVIDERS: PCP Nurse Practitioner Family; Visit Provider Nurse Practitioner Family
DX: Z00.00 Encounter for general adult medical examination without abnormal findings (principal); Z20.5 Contact with and (suspected) exposure to viral hepatitis
CPT/HCPCS: 36415; 80053; 80061; 81003; 84443; 85025; 86704; 86706; 86709; 86803; 87340

== ENCOUNTER → 2024-03-29 07:31 | Outpatient (BNVA) | payer BC, SELFPAY | PROVIDERS: PCP Nurse Practitioner Family ==

== ENCOUNTER 2024-04-09 12:56 | Outpatient (AMB) | payer BC, SELFPAY ==
[2024-04-09 13:00] VITALS: BP 130/80; PULSE 64; O2SAT 97; BMI 36.3
--- NOTE | 2024-04-09 13:00 | A.OFFPC_ITS ---
Vital Signs 04/09/24 13:00 Height 6 ft 6 in Weight 314 lb 4 oz BMI 36.3 BP 130/80 Blood Pressure Location Rt brachial Position Sitting Pulse 64 Pulse Source Pulse Oximeter Pulse Oximetry (%) 97 Oxygen Delivery Method Room Air Intake Visit Reasons: PE - BP concerns Allergies No Known Allergies Allergy (Verified 04/09/24 13:27) Medication List - Last Reconciled 04/09/24 by VANDA Vega albuterol sulfate 90 mcg/actuation (Ventolin HFA) 1 inh inhalation QID PRN fluticasone propionate 44 mcg/actuation (Flovent HFA) 1 puff inhalation BID Tobacco use date assessed: 04/09/24 Dental Screening Dental Screen Date: 04/09/24 Did you have a dental visit in the last 12 months?: Yes Did you have a dental problem in the last 6 months where you did not have access to dental care?: No Was dental information given to patient?: Patient has dentist HPI PE - BP concerns HPI Details Pt is here for a PE. Will order labs. Pt reports intermittent headache to his temples. He reports that ibuprofen and extra strength tylenol do not help. Denies photophobia and sonophobia. Pt will keep a headache diary and follow up with me for this. He does have a lot of stress and lack of sleep. Pt has a hx of elevated liver enzymes. US has been ordered. [facility] Medical History No known health problems Family History Father Diabetes mellitus Mother No problems noted. Brother No problems noted. Brother No problems noted. Social History Housing: House Patient Tobacco Use Status: Never used Tobacco service: No Current occupational status: employed Cognitive needs: No Hearing needs: No Vision needs: No Questionnaire PHQ-9 Over the last 2 weeks, how often have you been bothered by any of the following problems? 1. Little interest or pleasure in doing things: not at all 2. Feeling down, depressed, or hopeless: not at all 3. Trouble falling or staying asleep, or sleeping too much: not at all 4. Feeling tired or having little energy: not at all 5. Poor appetite or overeating: not at all 6. Feeling bad about yourself - or that you are a failure or have let yourself or your family down: not at all 7. Trouble concentrating on things, such as reading the newspaper or watching television: not at all 8. Moving or speaking so slowly that other people could have noticed. Or the opposite - being so fidgety or restless that you have been moving around a lot more than usual: not at all 9. Thoughts that you would be better off or of hurting yourself in some way: not at all Total score: 0 Depression Screening Interpretation: Negative Depression Screening Done: Yes 60752 - PHQ-9 Billing: Yes Source: Developed by Drs. Ryan Simpson, Marge Reilly, Félix Graham and colleagues, with an educational adam from [employer]. Thrive Questionnaire Date Thrive assessed: 04/09/24 I am a: Patient What is your living situation today?: I have a steady place to live Within the past 12 months, did the food you bought not last and you didn't have the money to get more?: Never true Within the past 12 months, did you worry whether your food would run out before you got money to buy more?: Never true Do you have trouble paying for medicines?: No Do you have trouble getting transportation to medical appointments?: No Do you have trouble paying your heating and electricity bill?: No Do you have trouble taking care of your child, family member or friend?: No Do you have trouble with day-to-day activities such as bathing, preparing meals, shopping, managing finances, etc.?: No Are you interested in more education?: No Please select the resources that you would like help with: None Currently or been in a relationship where the following occur: No concerns reported THRIVE Score: 0 AUDIT C Alcohol Use Questionnaire (AUDIT-C) 1. How often do you have a drink containing alcohol?: Monthly or less 2. How many drinks containing alcohol do you have on a typical day when you are drinking?: 3 or 4 3. How often do you have six or more drinks on one occasion?: Less than monthly Total Score: 3 Score Reviewed/Action Taken: Yes MYNOR-7 AMB Questionnaire MYNOR-7 Date MYNOR - 7 assessed: 04/09/24 Feeling nervous, anxious, or on edge: 0 = Not at all Not being able to stop or control worryin = Not at all Worrying too much about different things: 0 = Not at all Trouble relaxin = Not at all Being so restless that it is hard to sit still: 0 = Not at all Becoming easily annoyed or irritable: 0 = Not at all Feeling afraid as if something awful might happen: 0 = Not at all Total MYNOR-7 score (0-4 normal; 5-9 mild; 10-14 moderate; 15-21 severe): 0 Source: Developed by Drs. Ryan Simpson, Marge Reilly, Félix Graham and colleagues, with an educational adam from [employer]. MYNOR-7 Assessment Billing MYNOR-7 Assessment Tool: MYNOR-7 Assessment 26000 Review of Systems Const Denies chills, Denies fever(s) and Reports headache(s) Eyes Denies blurry vision ENT Denies vertigo, Denies dizziness, Reports headache(s) and Denies sore throat Card Denies chest pain at rest, Denies chest pain with activity, Denies diaphoresis, Denies dyspnea and Denies dyspnea on exertion Resp Denies cough, Denies dyspnea, Denies dyspnea on exertion and Denies wheezing GI Denies abdominal pain, Denies melena, Denies hematochezia, Denies constipation, Denies diarrhea and Denies loose stools Denies hematuria Musc Denies numbness and Denies tingling Skin/Breast Denies lesions Neuro Denies vertigo, Denies dizziness, Reports headache(s), Denies numbness and Denies tingling Psych Denies anxiety, Denies depression, Denies homicidal ideation, Denies suicidal ideation and Denies other (substance abuse) Aller/Immun Denies wheezing Physical exam (Primary Care) Vital Signs: Last Vital Signs Pulse 64 04/09/24 13:00 BP 130/80 04/09/24 13:00 Pulse Ox 97 04/09/24 13:00 Oxygen Delivery Method Room Air 04/09/24 13:00 BMI result Body Mass Index 36.3 Tobacco/Smoking Status: Tobacco use Status Tobacco use date assessed 04/09/24 04/09/24 13:01 Patient Tobacco Use Status Never used Tobacco 04/09/24 13:01 PHQ-9: PHQ-9 Score PHQ-9: Total score 0 04/09/24 13:26 Depression Screening Interpretation: Negative Thrive Assessment: Date of Thrive Assessment Date Thrive assessed 04/09/24 04/09/24 13:01 Currently or been in a relationship where the following occur: No concerns reported Const General: cooperative Nutritional Appearance: obese Orientation/consciousness: patient oriented x3 HENMT Head: Yes normal to inspection, Yes normocephalic and Yes atraumatic Ears: TM's normal bilaterally Eyes General: appearance normal, both eyes and all related structures Alignment and Position: alignment normal and position normal Neck Neck: Yes normal visual inspection, Yes no lymphadenopathy and Yes supple Resp Effort & Inspection: normal respiratory effort Auscultation: clear to auscultation bilaterally Cardio Rate: regular rate Rhythm: regular rhythm Heart sounds: S1 normal heart sound present, S2 normal heart sound present and no murmurs GI Palpation (GI): Soft to palpation and nontender Auscultation: normal bowel sounds Male General Exam: Yes normal external exam Penis: normal penis Scrotum: scrotum normal, testes descended bilaterally and no inguinal hernias Testes: no testicular mass Skin Rashes: no rashes Neuro General: patient oriented x3, moves all extremities, no focal motor deficits and deep tendon reflexes 2+ bilaterally Romberg Test: Negative Psych Appearance: grossly normal Mental Status: mental status grossly normal Speech and movement: Normal speech and movement present Affect: normal affect Attitude: cooperative Thought process: Normal thought process present Thought content: Normal thought content present Insight: Good insight present (Psych) Judgement: Good judgement present (Psych) Coding Level of Care Code Est Pt Level 3 (80117) Est Pt Prev Care 18-39y(94962) Diagnoses Physical exam Z00.00 Headache R51.9 Elevated liver enzymes R74.8 Additional Codes MYNOR-7 Assessment Billing - MYNOR-7 Assessment Tool: MYNOR-7 Assessment 31106 ([id number]) Assessment & Plan Assessment & Plan (1) Physical exam: Code(s): Z00.00 - Encounter for general adult medical examination without abnormal findings Category: Medical Plan: Labs ordered (2) Headache: Code(s): R51.9 - Headache, unspecified Category: Medical Plan: Pt will keep a headache diary and follow up with me (3) Elevated liver enzymes: Code(s): R74.8 - Abnormal levels of other serum enzymes Category: Medical Plan: US has been ordered Plan The patient agreed to the use of a medical services coordinator for this encounter. Scribed for VANDA Cabral by Sujatha Clarke medical services coordinator, on 04/09/2024 at 13:25 EST. Orders: Orders Complete Blood Count Auto Diff Today Z00.00 - Encounter for general adult medical examination without abnormal findings Comprehensive [place]. Panel Fast Today Z00.00 - Encounter for general adult medical examination without abnormal findings UA CC w/rflx Micro + Cult Today Z00.00 - Encounter for general adult medical examination without abnormal findings TSH reflex Free T4 Today Z00.00 - Encounter for general adult medical examination without abnormal findings Lipid Panel Today Z00.00 - Encounter for general adult medical examination without abnormal findings
== END 2024-04-09 13:44 | disposition home or self-care (01) ==
PROVIDERS: PCP Nurse Practitioner Family; Visit Provider Nurse Practitioner Family
DX: Z00.00 Encounter for general adult medical examination without abnormal findings (principal); R51.9 Headache, unspecified; R74.8 Abnormal levels of other serum enzymes

== ENCOUNTER → 2024-04-09 12:56 | Outpatient (BNVA) | payer BC, SELFPAY | PROVIDERS: PCP Nurse Practitioner Family; Visit Provider Nurse Practitioner Family | DX: Z00.01 Encounter for general adult medical examination with abnormal findings (principal); R51.9 Headache, unspecified; R74.8 Abnormal levels of other serum enzymes | CPT/HCPCS: 96127 ==

== ENCOUNTER 2024-04-19 08:55 | Outpatient (REF) | payer BC, SELFPAY ==
--- NOTE | ~2024-04-19 | US_ITS ---
EXAMINATION: US ABDOMEN COMPLETE CLINICAL INFORMATION: Abnormal levels of other serum enzymes. COMPARISON: Ultrasound abdomen limited 03/18/2021. Ultrasound abdomen complete 07/03/2019. TECHNIQUE: Real-time imaging of the abdominal viscera. FINDINGS: PANCREAS: The visualized portions of the pancreas are unremarkable but a large portion of the gland is obscured by bowel gas. It ABDOMINAL AORTA: The proximal, mid, and distal segments are normal in caliber. INFERIOR VENA CAVA: Visualized portions are normal. LIVER: The liver is normal in size. The liver contour is normal. There is diffuse increased liver parenchymal echogenicity, consistent with hepatic steatosis. No focal hepatic lesion. There is no intrahepatic biliary duct dilatation seen. GALLBLADDER: Normal. The gallbladder is physiologically distended without evidence of stones, sludge, polyps, wall thickening or pericholecystic fluid. COMMON BILE DUCT: Normal in caliber measuring 0.41 cm in diameter. RIGHT KIDNEY: Normal. No hydronephrosis. No renal calculi or focal parenchymal lesions. The kidney measures 11.8 cm in maximum dimension. LEFT KIDNEY: Normal. No hydronephrosis. No renal calculi or focal parenchymal lesions. The kidney measures 11.3 cm in maximum dimension. SPLEEN: Normal. The spleen measures 13.1 cm in maximum dimension. FREE FLUID: None. US/US abdomen complete IMPRESSION: Hepatic steatosis. Electronically signed by: Peter Victor MD 06/16/2024 12:21 PM [facility]
== END 2024-04-19 08:56 | disposition home or self-care (01) ==
LOC: HO.HMGCX 08:55
PROVIDERS: PCP Nurse Practitioner Family; Visit Provider Nurse Practitioner Family
DX: R74.8 Abnormal levels of other serum enzymes (principal)
CPT/HCPCS: 76700

== ENCOUNTER 2024-05-26 09:01 | Outpatient (REF) | payer BC, SELFPAY ==
--- NOTE | ~2024-05-26 | XR_ITS ---
EXAMINATION: XR CHEST CLINICAL INFORMATION: R05.9 - Cough, unspecified COMPARISON: 2019 TECHNIQUE: 2 views of the chest were obtained. FINDINGS: No significant abnormality is noted involving the heart, lungs, mediastinum, bony thorax or soft tissues. XR/XR chest 2V IMPRESSION: No acute disease Electronically signed by: Mesfin Padilla MD 05/27/2024 10:04 AM [facility]
== END 2024-05-26 09:02 | disposition home or self-care (01) ==
LOC: HO.HMGCX 09:01
PROVIDERS: PCP Nurse Practitioner Family; Visit Provider Physician Assistant Medical
DX: R05.9 Cough, unspecified (principal)
CPT/HCPCS: 71046

== ENCOUNTER 2024-05-26 09:01 | Outpatient (AMB) | payer BC, SELFPAY ==
--- NOTE | 2024-05-26 09:10 | MHC.OFFWIV ---
Intake Vital Signs 05/26/24 09:11 Height 6 ft 5 in Weight 313 lb BMI 37.1 BP 128/74 Blood Pressure Location Lt brachial Pulse 76 Pulse Source Pulse Oximeter Temp 97.7 F Temp Source Oral Pulse Oximetry (%) 97 Oxygen Delivery Method Room Air Intake Visit Reasons: EP ?Sinus infection Intake Note: Pt is here today c/o sinus congestion and post nasal drip also SOB Patient Tobacco Use Status: Never used Tobacco Allergies No Known Allergies Allergy (Verified 07/25/24 09:05) HPI EP ?Sinus infection HPI Details Patient is a 33-year-old male with history of what he reports is resolved childhood asthma (says he has not used albuterol in years and years), who comes to the walk-in clinic complaining of a few days of runny nose that is turning into thick nasal and sinus congestion/pressure, with rare cough, but does feel like he is developing some labored breathing as of when he was at work last night. He also has felt intermittent chills, but no documented fever. He denies nausea vomiting diarrhea, abdominal pain, weakness or dizziness, malaise or myalgias, severe sore throat, loss of sense of taste or smell, chest pain, or other significant associated symptoms. [facility] Medical History No known health problems Family History Father Diabetes mellitus Mother No problems noted. Brother No problems noted. Brother No problems noted. Social History Housing: House Patient Tobacco Use Status: Never used Tobacco service: No Current occupational status: employed Cognitive needs: No Hearing needs: No Vision needs: No Review of Systems Const All systems reviewed & are unremarkable except as noted in HPI and below Physical Exam Vital Signs: Last Vital Signs Temp 97.7 F 05/26/24 09:11 Pulse 76 05/26/24 09:11 BP 128/74 05/26/24 09:11 Pulse Ox 97 05/26/24 09:11 Oxygen Delivery Method Room Air 05/26/24 09:11 BMI result Body Mass Index 37.1 Const General: cooperative, healthy appearing, comfortable, no acute distress, alert, awake, Physically active and well groomed; No anxious, diaphoretic, ill appearing, intoxicated appearing, poor hygiene or tired appearing Orientation/consciousness: oriented to person Limitations: no limitations HEENT Head: Yes normal to inspection, Yes normocephalic and Yes atraumatic Ears: hearing grossly normal bilaterally, external ears normal, TM's normal bilaterally and EAC's normal General nose exam: Normal external nose present, Normal septum present, No nasal discharge present and Abnormal mucous membranes and turbinates present Face and sinus: Yes sinus tenderness and Yes Facial tenderness on exam of face and sinuses Mouth: Normal oral and palatal mucosa present, lip normal and tongue normal Throat: Yes posterior oropharynx normal, No peritonsillar mass, No postnasal drainage, No uvular edema and No cobblestoning Eyes General: appearance normal, both eyes and all related structures Neck Neck: Yes normal visual inspection, Yes no lymphadenopathy, Yes trachea midline, Yes supple and No anterior neck swelling Chest Chest palpation & inspection: normal palpation of entire chest wall Resp Effort & Inspection: normal respiratory effort, able to speak in complete sentences, normal respiratory pattern, no audible wheezes, Actively coughing (Occasional), no grunting, not labored, no nasal flaring, no respiratory distress, no retractions, no stridor, not tachypneic, no tripod positioning, no use of accessory muscles, No prolonged expiratory phase and symmetric chest movement Auscultation: clear to auscultation bilaterally, no crackles, no rales, no rhonchi, no wheezes, lung sounds not diminished and No rub present Cardio Palpation: normal PMI Rate: regular rate Rhythm: regular rhythm Heart sounds: S1 normal heart sound present and S2 normal heart sound present Skin Other: Good color, warm and dry Neuro General: oriented to person Psych Appearance: grossly normal Mental Status: mental status grossly normal Speech and movement: Normal speech and movement present Affect: normal affect Attitude: cooperative Thought process: Normal thought process present Insight: Good insight present (Psych) Judgement: Good judgement present (Psych) Assessment & Plan Assessment & Plan (1) Sinusitis: Code(s): J32.9 - Chronic sinusitis, unspecified Qualifiers: Sinusitis location: maxillary Chronicity: acute Recurrence: non-recurrent Qualified Code(s): J01.00 - Acute maxillary sinusitis, unspecified Plan: Patient is a 33-year-old male with history of what he reports is resolved childhood asthma (says he has not used albuterol in years and years), who comes to the walk-in clinic complaining of a few days of runny nose that is turning into thick nasal and sinus congestion/pressure, with rare cough, but does feel like he is developing some labored breathing as of when he was at work last night. He also has felt intermittent chills, but no documented fever. Plain film chest x-ray today is unremarkable, and lung sounds are good. His vital signs are stable and not in any apparent respiratory distress. Pending flu COVID and RSV results. I will write him for doxycycline to cover sinusitis, as he is developing pressure that he states is moderate in intensity. He has no wheezing, and he is not short of breath at rest, so we discussed holding off on prednisone for now. He should follow up symptoms persist or worsen, or go to the emergency department with worrisome symptoms. Orders: Orders SARS-CoV2/FLU/RSV 05/26/24 J06.9 - Acute upper respiratory infection, unspecified XR chest 2V 05/26/24 R05.9 - Cough, unspecified Medications: New doxycycline hyclate 100 mg PO BID 14 tabs 0RF 7 days Coding Level of Care Code Est Pt Level 4 (01577) Diagnoses Acute non-recurrent maxillary sinusitis J01.00 Sinusitis location: maxillary Chronicity: acute Recurrence: non-recurrent
[2024-05-26 09:11] VITALS: BP 128/74; PULSE 76; TEMP 36.5; O2SAT 97; BMI 37.1
== END 2024-05-26 11:21 | disposition home or self-care (01) ==
PROVIDERS: PCP Nurse Practitioner Family; Visit Provider Physician Assistant Medical
DX: J01.00 Acute maxillary sinusitis, unspecified (principal)

== ENCOUNTER 2024-05-26 09:31 | Outpatient (REF) | payer BC, SELFPAY ==
[2024-05-26 11:52] LABS: Influenza A PCR NEGATIVE (Negative); Influenza B PCR NEGATIVE (Negative); Resp Syncy Virus RNA Qual PCR NEGATIVE (Negative); SARS COV2 PCR INHOUSE NEGATIVE (Negative)
== END 2024-05-26 09:32 | disposition home or self-care (01) ==
LOC: HO.LAB 09:31
PROVIDERS: Visit Provider Physician Assistant Medical
DX: J06.9 Acute upper respiratory infection, unspecified (principal)
CPT/HCPCS: 0241U

== ENCOUNTER 2024-07-12 09:34 | Outpatient (AMB) | payer BC, SELFPAY ==
[2024-07-12 10:02] VITALS: BP 126/86; PULSE 64; TEMP 37; O2SAT 97; BMI 36.3
--- NOTE | 2024-07-12 10:02 | MHC.OFFWIV ---
Intake Vital Signs 07/12/24 10:02 Height 6 ft 5 in Weight 306 lb BMI 36.3 BP 126/86 Blood Pressure Location Lt brachial Position Sitting Pulse 64 Pulse Source Pulse Oximeter Temp 98.6 F Temp Source Oral Pulse Oximetry (%) 97 Oxygen Delivery Method Room Air Intake Visit Reasons: EP chest cold Intake Note: Pt is here today c/o chest congestion and coughing: post nasal Patient Tobacco Use Status: Never used Tobacco Allergies No Known Allergies Allergy (Verified 07/12/24 10:07) HPI HPI Comments History of Present Illness Details History - The patient is a 33-year-old male presenting with complaints of persistent cough and postnasal drip following an upper respiratory infection. - Symptoms began a week ago with a sore throat and headache, worsening to include deep bronchial cough and nasal congestion. - The patient's cough and congestion are exacerbated by a postnasal drip with discolored nasal discharge. - By Tuesday, the patient experienced a complete loss of voice, making it difficult to communicate. - The patient has a history of asthma, primarily inactive in recent years, and is running low on his usual rescue inhaler. - No recent contact with family members affected by RSV since June, and no recent fever reported. - Ear examination revealed possible infection; redness noted in the throat. Physical Exam General: Cooperative, healthy appearing, comfortable and no acute distress Orientation/consciousness: Patient oriented x3 Limitations: No limitations Head: Normal to inspection Ears: Hearing grossly normal bilaterally, external ears normal and TM's with effusion on right TM; left TM normal, EAC erythema and cerumen bilaterally Nose: Normal external nose present, Normal nares present and No nasal discharge present Face and sinus: Normal facial exam and Yes sinuses nontender Mouth: Normal oral and palatal mucosa present and moist mucous membranes Throat: Yes tonsils normal, Yes uvula midline. Posterior oropharynx erythema Eyes: Appearance normal, both eyes and all related structures Neck: Normal visual inspection Respiratory: Clear to auscultation bilaterally. Normal respiratory effort, able to speak in complete sentences, Actively coughing, no respiratory distress, not tachypneic, no tripod positioning and no use of accessory muscles Cardiovascular: Regular rate and rhythm. Normal S1 and S2 Skin: No rashes or lesions noted Neuro: Patient oriented x3 Extremities: Normal to inspection and Yes no clubbing, cyanosis or edema [facility] Medical History No known health problems Family History Father Diabetes mellitus Mother No problems noted. Brother No problems noted. Brother No problems noted. Social History Housing: House Patient Tobacco Use Status: Never used Tobacco service: No Current occupational status: employed Cognitive needs: No Hearing needs: No Vision needs: No Review of Systems Const All systems reviewed & are unremarkable except as noted in HPI and below Physical Exam Vital Signs: Last Vital Signs Temp 98.6 F 07/12/24 10:02 Pulse 64 07/12/24 10:02 BP 126/86 07/12/24 10:02 Pulse Ox 97 07/12/24 10:02 Oxygen Delivery Method Room Air 07/12/24 10:02 BMI result Body Mass Index 36.3 Assessment & Plan Assessment & Plan (1) Lower respiratory infection (e.g., bronchitis, pneumonia, pneumonitis, pulmonitis): Code(s): J22 - Unspecified acute lower respiratory infection Plan: I am initiating a Medrol Dosepak as a 6-day taper for the acute upper respiratory infection to manage inflammation. A Z-Nghia will also be prescribed to target potential bacterial infections and help reduce inflammation. Due to his history of asthma and running low on the inhaler, a refill of albuterol is appropriate for addressing any bronchospasm. The suspected acute otitis media will be closely watched as the current treatment, Flonase, should help mitigate symptoms. Testing for flu, COVID-19, and RSV was performed, and the patient will be advised based on those results. The patient is advised to remain vigilant regarding any symptom escalation or respiratory distress and seek further care if necessary. Wrote work note. Patient was informed and verbally consented to the use of an ambient scribe for clinic note documentation during this visit Orders: Orders SARS-CoV2/FLU/RSV Today J22 - Unspecified acute lower respiratory infection Medications: New albuterol sulfate 90 mcg/actuation 2 puffs inhalation Q6H PRN 8.5 grams 0RF shortness of breath or wheezing or cough methylprednisolone PO PER PKG DIR for 6 days 21 ea 0RF azithromycin For 250 mg dose pack: take 500 mg today (day 1), then 250 mg for 4 days (days 2-5) PO 6 tabs 0RF Coding Level of Care Code Est Pt Level 4 (97493) Diagnoses Lower respiratory infection (e.g., bronchitis, pneumonia, pneumonitis, pulmonitis) J22
== END 2024-07-12 10:32 | disposition home or self-care (01) ==
PROVIDERS: PCP Nurse Practitioner Family; Visit Provider Physician Assistant
DX: J22 Unspecified acute lower respiratory infection (principal)

== ENCOUNTER 2024-07-12 09:34 | Outpatient (REF) | payer BC, SELFPAY | END 2024-07-12 09:35 | disposition home or self-care (01) | LOC: HO.LAB 09:34 | PROVIDERS: PCP Nurse Practitioner Family | DX: Z13.89 Encounter for screening for other disorder (principal) | CPT/HCPCS: 0241U ==

== ENCOUNTER 2024-07-12 10:32 | Outpatient (REF) | payer BC, SELFPAY ==
[2024-07-13 11:15] LABS: Influenza A PCR NEGATIVE (Negative); Influenza B PCR NEGATIVE (Negative); Resp Syncy Virus RNA Qual PCR NEGATIVE (Negative); SARS COV2 PCR INHOUSE NEGATIVE (Negative)
== END 2024-07-12 10:33 | disposition home or self-care (01) ==
LOC: HO.LNP 10:32
PROVIDERS: Visit Provider Physician Assistant
DX: J22 Unspecified acute lower respiratory infection (principal)
CPT/HCPCS: 0241U

== ENCOUNTER 2024-07-25 08:51 | Outpatient (AMB) | payer BC, SELFPAY ==
--- NOTE | 2024-07-25 09:03 | AM.OFFWIN_ITS ---
Intake Vital Signs 07/25/24 09:04 Height 6 ft 5 in Weight 306 lb BMI 36.3 BP 114/80 Blood Pressure Location Rt brachial Position Sitting Pulse 70 Pulse Source Pulse Oximeter Temp 98.1 F Temp Source Oral Pulse Oximetry (%) 98 Oxygen Delivery Method Room Air Intake Visit Reasons: EP-?bronchitis Intake Note: Patient here for sinus pressure, cough,congestion and was put on antibiotics which seemed to help but then it came right back once he finished them off. Patient Tobacco Use Status: Never used Tobacco Allergies No Known Allergies Allergy (Verified 07/25/24 09:05) Do you need a note to return to daycare/school/sports/work: Yes HPI HPI Comments History of Present Illness Details This is a 33-year-old male with no stated past medical history presenting for evaluation of sinus congestion and cough. Patient was seen in the walk-in on July 12, 2024 and prescribed a Medrol Dosepak, Z-Nghia and albuterol inhaler for management of his symptoms. Patient had a negative viral panel at that time. Currently the patient denies having any fevers, chills, sore throat, otalgia, chest pain or overt shortness for breath. Patient's son has had similar symptoms. 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 [facility] Medical History No known health problems Family History Father Diabetes mellitus Mother No problems noted. Brother No problems noted. Brother No problems noted. Social History Housing: House Patient Tobacco Use Status: Never used Tobacco service: No Current occupational status: employed Cognitive needs: No Hearing needs: No Vision needs: No Review of Systems Const All systems reviewed & are unremarkable except as noted in HPI and below Denies chills and Denies fever(s) Eyes Reports as per HPI and Reports no additional complaints ENT Reports as per HPI and Reports sinus pressure Card Reports no additional complaints and Denies dyspnea Resp Reports cough, Denies hemoptysis, Denies dyspnea and Denies wheezing GI Reports no additional complaints Reports no additional complaints Musc Reports no additional complaints Skin/Breast Reports system reviewed and no additional complaints, except as documented Neuro Reports no additional complaints Psych Reports no additional complaints Endo Reports no additional complaints Adrian/Lymph Reports no additional complaints Aller/Immun Reports no additional complaints and Denies wheezing Physical Exam Vital Signs: Last Vital Signs Temp 98.1 F 07/25/24 09:04 Pulse 70 07/25/24 09:04 BP 114/80 07/25/24 09:04 Pulse Ox 98 07/25/24 09:04 Oxygen Delivery Method Room Air 07/25/24 09:04 BMI result Body Mass Index 36.3 Patient is afebrile and is not hypoxic. Const General: cooperative, healthy appearing, comfortable, no acute distress, well developed, alert, awake and Physically active; No ill appearing or lethargic Nutritional Appearance: average body habitus Orientation/consciousness: patient oriented x3 and No lethargic Limitations: no limitations HEENT Head: Yes normal to inspection and Yes normocephalic Ears: hearing grossly normal bilaterally, external ears normal, TM's abnormal bilaterally (TMs bulging bilaterally without erythema) and EAC's normal General nose exam: Normal external nose present Face and sinus: Yes normal facial exam and No sinus tenderness Mouth: Normal oral and palatal mucosa present and moist mucous membranes Throat: Yes posterior oropharynx normal and No postnasal drainage Eyes General: appearance normal, both eyes and all related structures Neck Lymphatic: no lymphadenopathy noted Resp Effort & Inspection: normal respiratory effort, able to speak in complete sentences, abnormal respiratory pattern, no audible wheezes, no cough and no respiratory distress Auscultation: clear to auscultation bilaterally, no rhonchi, no wheezes and diminished lung sounds on the right in the lower lung young[place] Cardio Rate: regular rate Rhythm: regular rhythm Skin General skin exam: no rashes or lesions noted Neuro General: patient oriented x3 Psych Appearance: grossly normal Mental Status: mental status grossly normal Insight: Good insight present (Psych) Judgement: Good judgement present (Psych) Results Reviewed Results Reviewed: No acute findings noted on chest x-ray. Assessment & Plan Assessment & Plan (1) Bronchitis: Comment: Patient is well-appearing, is afebrile and is not hypoxic. No acute findings noted on chest x-ray. Patient will be discharged home. Code(s): J40 - Bronchitis, not specified as acute or chronic Plan: Mucinex OTC and albuterol inhaler as needed. Work note provided x2 days. Orders: Orders XR chest 2V Today J40 - Bronchitis, not specified as acute or chronic Coding Level of Care Code Est Pt Level 3 (57041) Diagnoses Bronchitis J40 Time Spent (min) 20
[2024-07-25 09:04] VITALS: BP 114/80; PULSE 70; TEMP 36.7; O2SAT 98; BMI 36.3
== END 2024-07-25 09:57 | disposition home or self-care (01) ==
PROVIDERS: PCP Nurse Practitioner Family; Visit Provider Physician Assistant
DX: J40 Bronchitis, not specified as acute or chronic (principal)

== ENCOUNTER 2024-07-25 08:51 | Outpatient (REF) | payer BC, SELFPAY ==
--- NOTE | ~2024-07-25 | XR_ITS ---
EXAMINATION: XR CHEST CLINICAL INFORMATION: J40 - Bronchitis, not specified as acute or chronic COMPARISON: None available. TECHNIQUE: 2 views of the chest were obtained. FINDINGS: The lungs are well-expanded and clear. The heart size and pulmonary vascularity is normal. No gross bony abnormality seen. XR/XR chest 2V IMPRESSION: Unremarkable chest exam Electronically signed by: Jerome Montenegro MD 07/25/2024 09:56 AM EST
== END 2024-07-25 08:52 | disposition home or self-care (01) ==
LOC: HO.HMGCX 08:51
PROVIDERS: PCP Nurse Practitioner Family; Visit Provider Physician Assistant
DX: J40 Bronchitis, not specified as acute or chronic (principal)
CPT/HCPCS: 71046

== ENCOUNTER → 2024-07-25 09:41 | Outpatient (BNV) | payer BC, SELFPAY | PROVIDERS: PCP Nurse Practitioner Family; Visit Provider Radiology Diagnostic Radiology | DX: J40 Bronchitis, not specified as acute or chronic (principal) | CPT/HCPCS: 71046 ==

== ENCOUNTER → 2024-08-08 10:16 | Outpatient (BNVA) | payer BC, SELFPAY | PROVIDERS: PCP Nurse Practitioner Family; Visit Provider Nurse Practitioner Family | DX: R10.13 Epigastric pain (principal) | CPT/HCPCS: 96127 ==

== ENCOUNTER 2024-08-11 07:48 | Outpatient (REF) | payer BC, SELFPAY ==
[2024-08-11 11:14] LABS: Appearance Urine Clear; Color Urine Yellow; Glucose Urine UA Negative (Negative); Leukocyte Esterase Urine Negative (Negative); Nitrite Urine Negative (Negative); Specific Gravity - Urine 1.025 (1.005-1.025); Urine Blood Negative (Negative); Urine Ketones Negative (Negative); Urine Protein Trace mg/dL (Neg-Trace)
[2024-08-11 11:15] LABS: MANUAL DIFF FLAG NO
[2024-08-11 11:17] LABS: Basophils Percent Auto 0.8 % (0-2); Eosinophils Absolute Auto 0.2 X10*3/uL (0.0-0.4); Eosinophils Percent Auto 3.6 % (0-4); Hematocrit 48.4 % (42.0-52.0); Hemoglobin 16.4 g/dl (14.0-18.0); Imm Gran Abs Auto 0.03 X10*3/uL (0.00-0.03); Imm Gran Pct Auto 0.6 % (0.0-0.4); Lymphocytes Absolute Auto 1.7 X10*3/uL (1.2-4.9); Lymphocytes Percent Auto 31.9 % (20-40); Mean Corpuscular HGB Conc 33.9 g/dl (31.0-36.0); Mean Corpuscular Hemoglobin 29.3 pg (27.0-33.0); Mean Corpuscular Volume 86.6 fL (80.0-98.0); Mean Platelet Volume 10.1 fL (9.4-12.4); Monocytes Absolute Auto 0.5 X10*3/uL (0.1-1.2); Monocytes Percent Auto 8.5 % (2-11); Neutrophils Absolute Auto 2.9 x10*3/uL (2.0-8.3); Neutrophils Percent Auto 54.6 % (45-73); Platelet Count 188 X10*3/uL (160-400); Red Blood Count 5.59 X10*6/uL (4.60-5.80); Red Cell Distribution Width 12.3 % (11.0-16.0); White Blood Count 5.3 X10*3/uL (4.8-10.8)
[2024-08-11 11:40] LABS: Alanine Aminotransferase 51 U/L (0-40); Albumin Level 4.3 g/dL (3.5-5.0); Alkaline Phosphatase 68 U/L (39-117); Amylase 30 U/L (28-100); Anion Gap 11 (12-20); Aspartate Amino Transferase 33 U/L (5-37); Bilirubin Total 1.1 mg/dL (0.0-1.0); Blood Urea Nitrogen 15 mg/dL (9-16); Calcium 9.2 mg/dL (8.4-10.2); Carbon Dioxide 24 mmol/L (22-29); Chloride 109 mmol/L (96-108); Cholesterol 185 mg/dL (<200); Estimated Glomerular Filt Rate > 60; Glucose Fasting 80 mg/dL (60-99); Glucose Random 80 mg/dL (60-115); HDL Cholesterol 55 mg/dL (>40); LDL Cholesterol Calculated 118 mg/dL (<100); Lipase 19 U/L (8-78); Potassium 4.1 mmol/L (3.3-5.1); Sodium 140 mmol/L (135-145); Total Protein 7.4 g/dL (6.5-8.0); Triglycerides 60 mg/dL (<150)
[2024-08-11 11:59] LABS: TSH reflex Free T4 1.81 uIU/mL (0.32-4.0)
== END 2024-08-11 07:49 | disposition home or self-care (01) ==
LOC: HO.HMGCLDS 07:48
PROVIDERS: PCP Nurse Practitioner Family; Visit Provider Nurse Practitioner Family
DX: Z00.00 Encounter for general adult medical examination without abnormal findings (principal); R74.8 Abnormal levels of other serum enzymes; R10.13 Epigastric pain
CPT/HCPCS: 36415; 80053; 80061; 81003; 82150; 83690; 84443; 85025

== ENCOUNTER 2024-08-13 12:41 | Outpatient (REF) | END 2024-08-13 12:42 | disposition home or self-care (01) | LOC: HO.CT 12:41 | DX: R10.13 Epigastric pain (principal) | CPT/HCPCS: 74150 ==

== ENCOUNTER → 2024-08-13 12:43 | Outpatient (BNV) | payer BC, SELFPAY | PROVIDERS: PCP Nurse Practitioner Family; Visit Provider Radiology Diagnostic Radiology | DX: R10.13 Epigastric pain (principal) | CPT/HCPCS: 74150 ==

== ENCOUNTER 2024-11-08 07:26 | Outpatient (AMB) | payer BC, SELFPAY ==
--- NOTE | 2024-11-08 07:36 | A.OFFPC_ITS ---
Intake Visit Reasons: 6 month follow up Allergies No Known Allergies Allergy (Verified 08/08/24 10:37) Medication List - Last Reconciled 11/08/24 by JONATHAN VegaP- albuterol sulfate 90 mcg/actuation 2 puffs inhalation Q6H PRN albuterol sulfate 90 mcg/actuation (Ventolin HFA) 1 inh inhalation QID PRN fluticasone propionate 250 mcg/actuation 1 inh inhalation BID pantoprazole 20 mg PO DAILY Tobacco use date assessed: 08/08/24 Dental Screening Dental Screen Date: 08/08/24 HPI 6 month follow up HPI Details History of Present Illness The patient is a 33-year-old male presenting with epigastric pain. The pain had previously been noted and pantoprazole was considered but not started, as the symptoms resolved with dietary changes. There is a historical diagnosis of fatty liver, and a prior abdominal CAT scan showed no abnormalities. The plan is to monitor the patient's liver status with laboratory tests in two months. Review of Systems - Gastrointestinal: Reports previous epi gastric pain. Denies ongoing symptoms as it dissipated with wool cleaner eating habits. Plan The patient's epigastric pain has resolved with dietary modification, so continuation of this approach is advised. Liver function tests will be repeated in two months to monitor the known fatty liver, with a follow-up conducted via telehealth. The negative abdominal CAT scan aids in the reassurance of a stable gastrointestinal condition. Discussion Notes I discussed with the patient the resolved nature of his epigastric pain and attributed it to his dietary changes, thus negating the immediate need for initiating pantoprazole. The patient was informed about the plan to monitor his liver function due to his history of fatty liver, with laboratory tests scheduled for two months. During our conversation, I highlighted the importance of adherence to lifestyle modifications that have shown a positive impact. The patient agreed to follow up via telehealth to discuss further management upon obtaining the laboratory results. The negative CAT scan findings were reviewed, providing reassurance regarding the abdominal concerns. Patient Instructions - Continue current dietary modifications . - Plan for liver function tests in [facility]. - Follow up via telehealth after test re sults are obtained. - Seek care if there are new or worsenin g symptoms. [facility] Medical History No known health problems Family History Father Diabetes mellitus Mother No problems noted. Brother No problems noted. Brother No problems noted. Social History Housing: House Patient Tobacco Use Status: Never used Tobacco e-Cigarette/Vaping Use: Never Used service: No Current occupational status: employed Cognitive needs: No Hearing needs: No Vision needs: No Questionnaire Thrive Questionnaire Date Thrive assessed: 08/08/24 I am a: Patient What is your living situation today?: I have a steady place to live Within the past 12 months, did the food you bought not last and you didn't have the money to get more?: Never true Within the past 12 months, did you worry whether your food would run out before you got money to buy more?: Never true Do you have trouble paying for medicines?: No Do you have trouble getting transportation to medical appointments?: No Do you have trouble paying your heating and electricity bill?: No Do you have trouble taking care of your child, family member or friend?: No Do you have trouble with day-to-day activities such as bathing, preparing meals, shopping, managing finances, etc.?: No Are you currently unemployed and looking for a job?: No Are you interested in more education?: No Please select the resources that you would like help with: None Currently or been in a relationship where the following occur: No concerns reported THRIVE Score: 0 MYNOR-7 AMB Questionnaire MYNOR-7 Date MYNOR - 7 assessed: 08/08/24 Source: Developed by Drs. Ryan Simpson, Marge Reilly, Félix Graham and colleagues, with an educational adam from [employer]. Physical exam (Primary Care) Tobacco/Smoking Status: Tobacco use Status Tobacco use date assessed 08/08/24 08/08/24 10:39 Patient Tobacco Use Status Never used Tobacco 08/08/24 10:39 e-Cigarette/Vaping Use Never Used 08/08/24 10:39 Thrive Assessment: Date of Thrive Assessment Date Thrive assessed 08/08/24 08/08/24 10:39 Currently or been in a relationship where the following occur: No concerns reported Telehealth Telehealth Telehealth Platform: [facility] Location of provider rendering services: practice address Location of patient: address on file Patient Identification confirmed using: Name, : Yes Telehealth method: video Patient verbally consented to treatment: Yes Patient verbally consented to billing insurance company: Yes Patient informed of any privacy concerns related to visit: Yes Minutes spent on Phone/Video with Pt.: 15 Coding Level of Care Code Tele Est Pt Level 3 (31044) Diagnoses GERD (gastroesophageal reflux disease) K21.9 Epigastric discomfort R10.13 Elevated liver enzymes R74.8 Assessment & Plan Assessment & Plan (1) GERD (gastroesophageal reflux disease): Code(s): K21.9 - Gastro-esophageal reflux disease without esophagitis Category: Medical (2) Epigastric discomfort: Code(s): R10.13 - Epigastric pain Category: Medical (3) Elevated liver enzymes: Code(s): R74.8 - Abnormal levels of other serum enzymes Category: Medical Plan . Orders: Orders Complete Blood Count Auto Diff Today K21.9 - Gastro-esophageal reflux disease without esophagitis, R10.13 - Epigastric pain, R74.8 - Abnormal levels of other serum enzymes Lipid Panel Today K21.9 - Gastro-esophageal reflux disease without esophagitis, R10.13 - Epigastric pain, R74.8 - Abnormal levels of other serum enzymes TSH reflex Free T4 Today K21.9 - Gastro-esophageal reflux disease without esophagitis, R10.13 - Epigastric pain, R74.8 - Abnormal levels of other serum enzymes Comprehensive Treichlers. Panel Fast Today K21.9 - Gastro-esophageal reflux disease without esophagitis, R10.13 - Epigastric pain, R74.8 - Abnormal levels of other serum enzymes UA CC w/rflx Micro + Cult Today K21.9 - Gastro-esophageal reflux disease without esophagitis, R10.13 - Epigastric pain, R74.8 - Abnormal levels of other serum enzymes Medications: New fluticasone propionate 250 mcg/actuation 1 inh inhalation BID 60 ea 2RF Refilled albuterol sulfate 90 mcg/actuation (Ventolin HFA) 1 inh inhalation QID PRN 8.5 grams 3RF shortness of breath or wheezing
== END 2024-11-08 08:42 | disposition home or self-care (01) ==
LOC: HO.HMCC 07:26
PROVIDERS: PCP Nurse Practitioner Family; Visit Provider Nurse Practitioner Family
DX: K21.9 Gastro-esophageal reflux disease without esophagitis (principal); R10.13 Epigastric pain; R74.8 Abnormal levels of other serum enzymes

== ENCOUNTER → 2024-11-08 07:26 | Outpatient (BNVA) | payer BC, SELFPAY | PROVIDERS: PCP Nurse Practitioner Family; Visit Provider Nurse Practitioner Family ==

== ENCOUNTER 2025-02-01 08:45 | Outpatient (REF) | payer BC, SELFPAY ==
[2025-02-01 10:53] LABS: MANUAL DIFF FLAG NO
[2025-02-01 10:59] LABS: Appearance Urine Clear; Glucose Urine UA Negative (Negative); Hematocrit 46.9 % (42.0-52.0); Hemoglobin 15.9 g/dl (14.0-18.0); Imm Gran Abs Auto 0.03 X10*3/uL (0.00-0.03); Imm Gran Pct Auto 0.5 % (0.0-0.4); Lymphocytes Absolute Auto 1.6 X10*3/uL (1.2-4.9); Mean Corpuscular HGB Conc 33.9 g/dl (31.0-36.0); Mean Corpuscular Hemoglobin 29.6 pg (27.0-33.0); Mean Corpuscular Volume 87.3 fL (80.0-98.0); NRBC Abs Auto 0.000 X10*3/uL (0.0-0.012); NRBC Pct Auto 0.0 /100WBC (0.0-0.2); PH 7.0 (5.0-9.0); Platelet Count 198 X10*3/uL (160-400); Red Blood Count 5.37 X10*6/uL (4.60-5.80); Specific Gravity - Urine 1.020 (1.005-1.025); White Blood Count 6.4 X10*3/uL (4.8-10.8)
[2025-02-01 11:22] LABS: Alanine Aminotransferase 61 U/L (0-40); Albumin Level 4.4 g/dL (3.5-5.0); Alkaline Phosphatase 73 U/L (39-117); Anion Gap 10 (12-20); Aspartate Amino Transferase 40 U/L (5-37); Blood Urea Nitrogen 18 mg/dL (9-16); Calcium 8.6 mg/dL (8.4-10.2); Carbon Dioxide 28 mmol/L (22-29); Chloride 105 mmol/L (96-108); Cholesterol 190 mg/dL (<200); Estimated Glomerular Filt Rate > 60; HDL Cholesterol 57 mg/dL (>40); Potassium 4.0 mmol/L (3.3-5.1); Sodium 139 mmol/L (135-145); Total Protein 7.0 g/dL (6.5-8.0); Triglycerides 77 mg/dL (<150)
== END 2025-02-01 08:46 | disposition home or self-care (01) ==
LOC: HO.HMGCLDS 08:45
PROVIDERS: PCP Nurse Practitioner Family; Visit Provider Nurse Practitioner Family
DX: K21.9 Gastro-esophageal reflux disease without esophagitis (principal); R10.13 Epigastric pain; R74.8 Abnormal levels of other serum enzymes
CPT/HCPCS: 36415; 80053; 80061; 81003; 84443; 85025

== ENCOUNTER 2025-02-06 21:59 | Emergency (ER) | payer OTHER, SELFPAY ==
--- NOTE | ~2025-02-06 | XR_ITS ---
CLINICAL HISTORY: pain 3 view left foot Comparison: X-rays of the left ankle from 02/06/2025 Findings: Calcifications nonspecific adjacent to the cuboid may be related to plantar fasciitis. Small avulsion fragments and loose body is considered less likely by imaging. Soft tissue swelling nonspecific including imaged forefoot. No dislocation. IMPRESSION: 1. Small calcifications adjacent to imaged cuboid may reflect findings of plantar fasciitis. Small avulsion fragments considered less likely by imaging. 2. Nonspecific soft tissue swelling. This document has been electronically signed by: Shayne Prado MD on 02/07/2025 00:37:44
--- NOTE | ~2025-02-06 | XR_ITS ---
CLINICAL HISTORY: pain, sprain 3 view left ankle Comparison: None provided Findings: Soft tissue swelling is nonspecific, including medially. No displaced fracture. No dislocation. Lower calcifications in the oblique imaged likely of the plantar fascia in the [id number]. Moderate effusion of the ankle. IMPRESSION: 1. Soft tissue swelling with effusion present. 2. No displaced fracture or dislocation of the left ankle. This document has been electronically signed by: Shayne Prado MD on 02/07/2025 00:36:48
[2025-02-06 22:07] VITALS: BP 153/90; PULSE 83; RESP 17; TEMP 36.2; O2SAT 97; BMI 37.0
[2025-02-06 23:02] VITALS: BP 136/80; PULSE 76; RESP 16; TEMP 37.1; O2SAT 95
--- NOTE | 2025-02-06 23:04 | ED_ITS ---
HPI - Extremity Injury (Lower) General Chief Complaint: Extremity Injury, Lower Stated Complaint: Work Injury Time Seen by Provider: 02/06/25 22:36 Source: patient Mode of arrival: ambulatory Limitations: no limitations History of Present Illness ED Provider: Dr. Mila Beck HPI Narrative: Patient comes to the emergency room complaining of right heel/foot pain. 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 Patient states that he may entry into a doorway at [employer] much house while working, patient states that he was walking down the stairs, missed a few steps and injured his right foot. Patient states that he feels a dull pain in the back of the right heel. Denies any ankle pain. Patient states that he is able to put weight on it but hurts quite a bit. Denies any other injuries. Related Data Previous Rx's ?Medication ?Instructions ?Recorded albuterol sulfate 90 mcg/actuation 2 puff inhalation Q 6H PRN 07/12/24 aerosol inhaler shortness of breath or wheez ing or cough #8.5 grams pantoprazole 20 mg tablet,delayed 20 mg PO DAILY #90 t abs 08/17/24 release albuterol sulfate 90 mcg/actuation 1 inh inhalation QI D PRN shortness 11/08/24 aerosol inhaler (Ventolin HFA) of breath or wheezing # 8.5 grams fluticasone propionate 250 1 inh inhalation BID #60 ea 11/08/24 mcg/actuation blister powder for inhalation ketorolac 10 mg tablet 10 mg PO TID PRN pain #12 ta bs 02/07/25 Allergies Allergy/AdvReac Type Severity Reaction Status Date / Time No Known Allergies Allergy Verified 02/06/25 22:09 Review of Systems Review of Systems: Constitutional : No Weight loss, No Fever, No Chills, No Night Sweats, No Fatigue, No Malaise ENT/Mouth : No Hearing loss, No Ear Pain, No Nasal Congestion, No Sinus Pain, No Hoarseness, No sore throat, No Rhinorrhea, No Swallowing Difficulty Eyes: No Eye Pain, No Swelling, No Redness, No Foreign Body, No Discharge, No Vision Changes Cardiovascular : No Chest Pain, No SOB, No Dyspnea on Exertion, No Orthopnea, No Edema, No Palpitations Respiratory : No Cough, No Sputum, No Wheezing, No Smoke Exposure, No Dyspnea Gastrointestinal : No Nausea, No Vomiting, No Diarrhea, No Constipation, No abdominal Pain, No Hematochezia, No Melena Genitourinary : no irregular bleeding, No Dysuria, No Urinary Frequency, No Hematuria, No Urinary Incontinence, No Urgency, No Flank Pain, No Urinary Flow Changes, No Hesitancy Musculoskeletal : Complaining of right posterior heel pain Skin : No Skin Lesions, No rash Neuro : No Weakness, No Numbness, No Paresthesias, No Loss of Consciousness, No Dizziness, No Headache Psych : No Anxiety/Panic, No Depression, No SI/HI/AH/VH, No Social Issues, Heme/Lymph: No Bruising, No Bleeding,No Lymphadenopathy Endocrine : No Polyuria, No Polydipsia, No Temperature Intolerance PMF Past Medical History Medical History No known health problems Family History Family History Father Diabetes mellitus Mother No problems noted. Brother No problems noted. Brother No problems noted. Social History Social History Housing: House Unable to assess alcohol history related to: Unknown Patient Tobacco Use Status: Never used Tobacco e-Cigarette/Vaping Use: Never Used Use of substances other than those prescribed or required for medical reasons: Unknown Advance Directives: No Advance Directives Information Provided: No Do you have a plan to hurt others: No Plan service: No Current occupational status: employed Cognitive needs: No Hearing needs: No Vision needs: No Physical Exam Exam: Exam: Appearance: Alert. Oriented X3. No acute distress. Eyes: Pupils equal, round and reactive to light. ENT: Pharynx normal. Neck: Normal inspection. Neck supple. No lymph nodes noted. No crepitus CVS: Normal heart rate and rhythm. Pulses normal. Normal S1 and S2 Respiratory: No respiratory distress. Breath sounds normal. No Wheezing. No rales Abdomen: Soft and nontender. No rigidity. No distention. Skin: Skin warm and dry. Normal skin color. Normal skin turgor. Extremities: No lower extremity edema. No Lacerations. No Rash. With patient in prone position, Day test shows normal plantar flexion bilaterally. Patient is able to hold his heels up when the knees are bent at 90 degrees, good strength. There is no palpable gap in the Achilles tendon. Patient is unable to stand on his tip toes due to discomfort. Patient states that he could do so but it hurts too much. Neuro: Oriented X 3. No motor deficit. No sensory deficit. Moving all extremities. No slurred speech. CN 2 through 12 grossly intact Psych: calm, cooperative, normal affect Vital Signs: Vital Signs: Last Vital Signs Temp 98.7 F 02/06/25 23:02 Pulse 76 02/06/25 23:02 Resp 16 02/06/25 23:02 BP 136/80 02/06/25 23:02 Pulse Ox 95 02/06/25 23:02 O2 Del Method Room Air 02/06/25 23:02 BMI result Body Mass Index 37.0 Course Course Course Narrative: Based on physical exam, I do not believe that the patient may have a full Achilles tendon rupture. However, there may be a tear. X-rays pending Patient being given 1 dose of IM Toradol Medications Administered Discontinued Medications Generic Name Dose Route Start Last Admin Trade Name Freq PRN Reason Stop Dose Admin Ketorolac Tromethamine 60 mg 02/06/25 23:03 02/06/25 23:27 Ketorolac Tromethamine 60 Mg/2 Ml Vial IM 02/06/25 23:04 60 mg ONCE ONE Administration Medical Decision Making Medical Decision Making [facility] Narrative: On physical exam, there was no palpable gap in the Achilles tendon, patient has good plantar flexion with the Day tests. However, due to pain patient is unable to stand on his toes Most likely, patient does have an Achilles tendon injury, however, full tendon rupture is not suspected. Patient will follow-up tomorrow with work connections X-rays do not show any acute abnormality. Independent Interpretation I performed an independent interpretation of an: Plain X-Ray Radiology Impression Discussion of test interpretation with radiology: I have reviewed the radiologist's reading. Radiologist Impression: 1. Small calcifications adjacent to imaged cuboid may reflect findings of plantar fasciitis. Small avulsion fragments considered less likely by imaging. 2. Nonspecific soft tissue swelling. Soft tissue swelling is nonspecific, including medially. No displaced fracture. No dislocation. Lower calcifications in the oblique imaged likely of the plantar fascia in the [id number]. Moderate effusion of the ankle. Discharge Plan Discharge Clinical Impression: Achilles tendon injury Patient Disposition: Home, Self-Care Instructions: Crutch Instructions (ED), P.R.I.C.E. Treatment (ED) Additional Instructions: Please follow-up with your primary care physician tomorrow. If you have any worsening or new symptoms, please return to the emergency room or call 911 Prescriptions: New ketorolac 10 mg tablet 10 mg PO TID PRN (Reason: pain) Qty: 12 0RF Rx Instructions: Do not use this medication with other NSAIDs, only Tylenol if needed No Action pantoprazole 20 mg tablet,delayed release (DR/EC) 20 mg PO DAILY Qty: 90 0RF albuterol sulfate 90 mcg/actuation HFA aerosol inhaler 2 puff inhalation Q6H PRN (Reason: shortness of breath or wheezing or cough) Qty: 8.5 0RF fluticasone propionate 250 mcg/actuation blister with device 1 inh inhalation BID Qty: 60 2RF albuterol sulfate [Ventolin HFA] 90 mcg/actuation HFA aerosol inhaler 1 inh inhalation QID PRN (Reason: shortness of breath or wheezing) Qty: 8.5 3RF Referrals: Jared De León MD [Physician, Occupational Medicine] Print Language: Slovenian
[2025-02-07 01:35] VITALS: BP 132/68; PULSE 71; RESP 18; TEMP 36.7; O2SAT 96
[2025-02-07 01:36] VITALS: BP 132/68; PULSE 71; RESP 18; TEMP 36.7; O2SAT 96
== END 2025-02-07 01:37 | disposition home or self-care (01) ==
PROVIDERS: Emergency Provider Emergency Medicine; PCP Nurse Practitioner Family
DX: S86.001A Unspecified injury of right Achilles tendon, initial encounter (principal); M25.572 Pain in left ankle and joints of left foot; X58.XXXA Exposure to other specified factors, initial encounter; Y93.9 Activity, unspecified; Y92.9 Unspecified place or not applicable; Y99.8 Other external cause status
CPT/HCPCS: 73610; 73630; 96372; 99284; J1885

== ENCOUNTER → 2025-02-06 23:02 | Outpatient (BNV) | payer OTHER, SELFPAY | PROVIDERS: Emergency Provider Emergency Medicine; PCP Nurse Practitioner Family; Visit Provider Radiology Neuroradiology | DX: M25.472 Effusion, left ankle (principal); R22.42 Localized swelling, mass and lump, left lower limb | CPT/HCPCS: 73610; 73630 ==

== ENCOUNTER 2025-02-07 06:54 | Outpatient (AMB) | payer BC, SELFPAY ==
--- NOTE | 2025-02-07 08:11 | MHC.PC.OV ---
Intake Visit Reasons: 3m telehealth follow up Allergies No Known Allergies Allergy (Verified 02/06/25 22:09) Tobacco use date assessed: 08/08/24 Dental Screening Dental Screen Date: 08/08/24 HPI telehealth follow up HPI Details History of Present Illness The patient is a 34-year-old male presenting with concerns about elevated liver enzymes. He has a history of fatty liver disease and acknowledges that his diet has been suboptimal due to stress from work and family responsibilities, including caring for a child with severe autism. The patient also reports a recent work-related injury where he fell down stairs, resulting in pain in the right Achilles region. He experienced swelling and sought emergency care, where imaging suggested a possible small tear in the Achilles tendon and noted soft tissue swelling and calcifications. There is also a suspicion of plantar fasciitis, and he is currently using a boot and crutches for mobility. Review of Systems - Gastrointestinal: Denies abdominal pain, nausea, vomiting, diarrhea, constipation. - General: Denies fever, chills. Plan The plan for managing the elevated liver enzymes includes monitoring the liver function tests, with a repeat test scheduled in two to three months. The patient is advised to improve dietary habits and increase physical activity to manage fatty liver disease. For the Achilles tendon injury, the patient is currently using a boot and crutches and will follow up with employee health services for further evaluation and management. The emergency room findings suggest a possible small tear, and further assessment will determine the need for additional interventions. Discussion Notes I discussed with the patient the importance of monitoring his liver enzymes and the potential impact of diet and exercise on his liver health. We also reviewed the findings from his recent emergency room visit regarding his Achilles injury and the plan for follow-up with employee health services. Patient Instructions - Follow a healthy diet and increase physical activity to help manage liver health. - Use the boot and crutches as directed for the Achilles injury. - Follow up with employee health services for further evaluation of the Achilles injury (WC). - Repeat liver function tests in two to three months. [facility] Medical History No known health problems Family History Father Diabetes mellitus Mother No problems noted. Brother No problems noted. Brother No problems noted. Social History Housing: House Unable to assess alcohol history related to: Unknown Patient Tobacco Use Status: Never used Tobacco e-Cigarette/Vaping Use: Never Used service: No Current occupational status: employed Cognitive needs: No Hearing needs: No Vision needs: No Questionnaire Thrive Questionnaire Date Thrive assessed: 08/08/24 I am a: Patient What is your living situation today?: I have a steady place to live Within the past 12 months, did the food you bought not last and you didn't have the money to get more?: Never true Within the past 12 months, did you worry whether your food would run out before you got money to buy more?: Never true Do you have trouble paying for medicines?: No Do you have trouble getting transportation to medical appointments?: No Do you have trouble paying your heating and electricity bill?: No Do you have trouble taking care of your child, family member or friend?: No Do you have trouble with day-to-day activities such as bathing, preparing meals, shopping, managing finances, etc.?: No Are you currently unemployed and looking for a job?: No Are you interested in more education?: No Please select the resources that you would like help with: None Currently or been in a relationship where the following occur: No concerns reported THRIVE Score: 0 MYNOR-7 AMB Questionnaire MYNOR-7 Date MYNOR - 7 assessed: 08/08/24 Source: Developed by Drs. Ryan Simpson, Marge Reilly, Félix Graham and colleagues, with an educational adam from [employer]. Physical exam (Primary Care) Tobacco/Smoking Status: Tobacco use Status Tobacco use date assessed 08/08/24 11/08/24 07:36 Patient Tobacco Use Status Never used Tobacco 11/08/24 07:36 e-Cigarette/Vaping Use Never Used 11/08/24 07:36 Thrive Assessment: Date of Thrive Assessment Date Thrive assessed 08/08/24 11/08/24 07:36 Currently or been in a relationship where the following occur: No concerns reported Telehealth Telehealth [facility]health [facility] Location of provider rendering services: practice address Location of patient: address on file Patient Identification confirmed using: Name, : Yes Telehealth method: video Patient verbally consented to treatment: Yes Patient verbally consented to billing insurance company: Yes Patient informed of any privacy concerns related to visit: Yes Minutes spent on Phone/Video with Pt.: 15 Coding Level of Care Code Est Pt Level 3 (64210) Diagnoses Fatty liver K76.0 Achilles tendon injury S86.009A Assessment & Plan Assessment & Plan (1) Fatty liver: Code(s): K76.0 - Fatty (change of) liver, not elsewhere classified Category: Medical (2) Achilles tendon injury: Code(s): S86.009A - Unspecified injury of unspecified Achilles tendon, initial encounter Category: Medical Plan . Orders: Orders Complete Blood Count Auto Diff Today K76.0 - Fatty (change of) liver, not elsewhere classified, R74.8 - Abnormal levels of other serum enzymes Comprehensive Met. Panel Today K76.0 - Fatty (change of) liver, not elsewhere classified, R74.8 - Abnormal levels of other serum enzymes
== END 2025-02-07 08:44 | disposition home or self-care (01) ==
LOC: HO.HMCC 06:55
PROVIDERS: PCP Nurse Practitioner Family; Visit Provider Nurse Practitioner Family
DX: K76.0 Fatty (change of) liver, not elsewhere classified (principal); S86.009A Unspecified injury of unspecified Achilles tendon, initial encounter

== ENCOUNTER → 2025-02-07 08:20 | Outpatient (BNVA) | payer OTHER, SELFPAY | PROVIDERS: PCP Nurse Practitioner Family; Visit Provider Physician Assistant Medical | DX: S86.012A Strain of left Achilles tendon, initial encounter (principal); W10.9XXA Fall (on) (from) unspecified stairs and steps, initial encounter | CPT/HCPCS: 99202 ==

== ENCOUNTER 2025-02-11 09:31 | Outpatient (AMB) | payer OTHER, SELFPAY ==
--- NOTE | 2025-02-11 09:40 | A.OFFVIS_ITS ---
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 Patient was seen at [facility] where he was placed in a post op shoe and crutches were given. He followed up with work connection the next day and was referred to orthopedics. Patient reports that he fell down the stairs while at work causing an injury to his ankle and achilles. Complaints of intermittent numbness and tingling as well as swelling. 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 He states he was responding to a call and when he went to return into the building he was going up a staircase, and as he was coming down he missed the last few stairs and the heel skid over the stairs and left foot slammed into the hardwood. [place] a pull into the back of the leg. [place] like someone squeezed the back of the heel, had an immediate limp with limited weight bearing. He was seen in the ED, patient was placed in a postop shoe and referred to our office for ortho eval. He was also seen at the work connection. [facility] Medical History (Updated 02/11/25 @ 10:26 by Jeramy Potter PA-C) No known health problems Family History Father Diabetes mellitus Mother No problems noted. Brother No problems noted. Brother No problems noted. Social History Housing: House Unable to assess alcohol history related to: Unknown Patient Tobacco Use Status: Never used Tobacco e-Cigarette/Vaping Use: Never Used service: No Current occupational status: employed Cognitive needs: No Hearing needs: No Vision needs: No Review of Systems Const All systems reviewed & are unremarkable except as noted in HPI and below Physical Exam Vital Signs: BMI result Body Mass Index 37.0 Const General: cooperative and no acute distress Orientation/consciousness: patient oriented x3 Resp Effort & Inspection: normal respiratory effort and able to speak in complete sentences Cardio Peripheral pulses: Peripheral pulses 2+ throughout Neuro General: patient oriented x3 Extrem Other: Left ankle is normal to inspection. He has significant tenderness over the Achilles tendon with no palpable defect. He has no tenderness over the gastroc. He has a negative Day's. He does have significant limitations with plantar or dorsiflexion. Neurovascularly intact. Results Reviewed Results Reviewed: X-ray imaging of the left foot and ankle obtained in the emergency department are negative for any knee acute fractures or dislocations. Assessment & Plan Assessment & Plan (1) Strain of left Achilles tendon: Code(s): S86.012A - Strain of left Achilles tendon, initial encounter Category: Medical Plan: It is unclear if the patient has a partial tear or just a strain of the Achilles tendon given the significant amount of discomfort on exam. An stat MRI of the left ankle has been ordered to further assess. The patient was placed in a tall boot today toe-touch weight-bearing with 2 wedges in the boot to offset the strain on the Achilles. He will remain out of work. I would like to see him back once the MRI is complete so we can discuss the next step whether this be continued conservative management versus surgical intervention. The patient is content with this plan and will discuss once the scan is complete. Orders: Orders MR ankle LT wo con Today S86.012A - Strain of left Achilles tendon, initial encounter Coding Level of Care Code New Pt Level 4 (86963) Complex EM visit Add On G2211 Diagnoses Strain of left Achilles tendon S86.012A
[2025-02-11 09:47] VITALS: BMI 37.0
== END 2025-02-11 10:40 | disposition home or self-care (01) ==
LOC: HO.HOS 09:32
PROVIDERS: PCP Nurse Practitioner Family; Visit Provider Physician Assistant
DX: S86.012A Strain of left Achilles tendon, initial encounter (principal)
CPT/HCPCS: 99203; G2211

== ENCOUNTER → 2025-02-11 09:31 | Outpatient (BNVA) | payer OTHER, SELFPAY | PROVIDERS: PCP Nurse Practitioner Family; Visit Provider Physician Assistant | DX: S86.012A Strain of left Achilles tendon, initial encounter (principal) | CPT/HCPCS: 99202 ==

== ENCOUNTER → 2025-02-15 16:19 | Outpatient (BNV) | payer OTHER, SELFPAY | PROVIDERS: PCP Nurse Practitioner Family; Visit Provider Radiology Diagnostic Radiology | DX: M76.62 Achilles tendinitis, left leg (principal) | CPT/HCPCS: 73721 ==

== ENCOUNTER 2025-02-15 16:20 | Outpatient (REF) | payer OTHER, SELFPAY ==
--- NOTE | ~2025-02-15 | MR_ITS ---
CLINICAL HISTORY: S86.012A - Strain of left Achilles tendon, initial encounter MR left ankle without gadolinium Comparison: CR - XR ANKLE LT MIN 3V - 02/06/25 23:18 EDT Findings: No acute fractures. No pathologic bone lesions. No joint effusion. Medial and lateral ligamentous complexes are intact. No tears of the flexor, extensor, or peroneal tendons. Few microtears in the distal Achilles tendon just above the insertion. No retraction or full-thickness tear. Medial, lateral, and central bands of the plantar fascia are intact. IMPRESSION: Few microtears in the distal Achilles tendon just above the insertion. No retraction or full-thickness tear. This document has been electronically signed by: Delmi Diaz MD on 02/15/2025 18:29:52
== END 2025-02-15 16:21 | disposition home or self-care (01) ==
LOC: HO.MRI 16:20
PROVIDERS: PCP Nurse Practitioner Family; Visit Provider Physician Assistant
DX: S86.012A Strain of left Achilles tendon, initial encounter (principal)
CPT/HCPCS: 73721

== ENCOUNTER 2025-03-22 08:11 | Outpatient (AMB) | payer OTHER, SELFPAY ==
--- NOTE | 2025-03-22 08:21 | A.OFFVIS_ITS ---
Intake Visit Reasons: OV - LT ankle MRI follow up Intake Note: Rl is a 34 year old man who presents today for a follow up visit and MRI review of his left ankle. At his last visit he was provided with a tall boot, toe-touch weight-bearing with 2 wedges in the boot to offset the strain on the Achilles and held out of work until his follow up. Patient is having no changes in his symptoms. MRI wo contrast of right ankle 02/15/25 IMPRESSION: Few microtears in the distal Achilles tendon just above the insertion. No retraction or full-thickness tear. Allergies No Known Allergies Allergy (Verified 02/11/25 09:51) HPI HPI OV - LT ankle MRI follow up: Details: 34 yo male returns to the office today for left Achilles tendon injury. He states on 03/11/25 he had his initial PT appt. Since then he has only had 1-2 other visits where they worked on some tissue mobilization and some stretching exercises. He continues to wear the boot and he has tried removing the wedges but he continues to have discomfort with ambulation. He feels the tendon area is really tight and gets shooting pains and burning in the Achilles region. He is still feels significantly limited in the daily activities. [facility] Medical History (Updated 02/11/25 @ 10:26 by Jeramy Potter PA-C) No known health problems Family History Father Diabetes mellitus Mother No problems noted. Brother No problems noted. Brother No problems noted. Social History (Reviewed 02/11/25 @ 09:51 by Cherie Crawford COUNT INCLUDES [facility]) Housing: House Unable to assess alcohol history related to: Unknown Patient Tobacco Use Status: Never used Tobacco e-Cigarette/Vaping Use: Never Used service: No Current occupational status: employed Cognitive needs: No Hearing needs: No Vision needs: No Review of Systems Const All systems reviewed & are unremarkable except as noted in HPI and below Physical Exam Const General: cooperative and no acute distress Orientation/consciousness: patient oriented x3 Resp Effort & Inspection: normal respiratory effort and able to speak in complete sentences Cardio Peripheral pulses: Peripheral pulses 2+ throughout Neuro General: patient oriented x3 Extrem Other: Left ankle is normal to inspection. He has significant tenderness over the Achilles tendon with no palpable defect. He has no tenderness over the gastroc. He has a negative Day's. He does have significant limitations with p lantar or dorsiflexion. Neurovascularly intact. Assessment & Plan Assessment & Plan (1) Strain of left Achilles tendon: Code(s): S86.012A - Strain of left Achilles tendon, initial encounter Category: Medical Plan: We reviewed the MRI images in the office today and reassurance was given the tendon is intact however with some micro tears and straining of the tendon I still encouraged him to use the boot for comfort and even add an wedge in the boot to help take some pressure off the tendon. He will continue to work with physical therapy for mobilization techniques, stretching and strengthening exercises. I did send a prescription for ibuprofen 800 mg t.i.d. to the pharmacy. He should take this for 2 weeks to help with acute inflammation. He will continue to remain out of work until his next follow-up appointment in 6-8 weeks. Medications: New ibuprofen 800 mg PO Q8H PRN 90 tabs 3RF pain 30 days Coding Level of Care Code Est Pt Level 3 (29882) Complex EM visit Add On G2211 Diagnoses Strain of left Achilles tendon S86.012A
== END 2025-03-22 08:52 | disposition home or self-care (01) ==
LOC: HO.HOS 08:12
PROVIDERS: PCP Nurse Practitioner Family; Visit Provider Physician Assistant
DX: S86.012A Strain of left Achilles tendon, initial encounter (principal)
CPT/HCPCS: 99213; G2211

== ENCOUNTER → 2025-03-22 08:11 | Outpatient (BNVA) | payer OTHER, SELFPAY | PROVIDERS: PCP Nurse Practitioner Family; Visit Provider Physician Assistant | DX: M25.572 Pain in left ankle and joints of left foot (principal); S86.012D Strain of left Achilles tendon, subsequent encounter | CPT/HCPCS: 99212 ==

== ENCOUNTER 2025-04-01 11:17 | Outpatient (REF) | payer BC, OTHER, SELFPAY ==
[2025-04-02 10:52] LABS: Chlamydia pneumoniae PCR Not Detected (Not Detect.); Coronavirus 229E PCR Not Detected (Not Detect.); Coronavirus HKU1 PCR Not Detected (Not Detect.); Coronavirus NL63 PCR Not Detected (Not Detect.); Coronavirus OC43 PCR Not Detected (Not Detect.); RSV PCR Not Detected (Not Detect.); Rhino/Enterovirus PCR Not Detected (Not Detect.)
[2025-04-02 10:54] LABS: Influenza A H1 PCR Not Detected (Not Detect.); Influenza A H1-2009 PCR Not Detected (Not Detect.); Influenza A H3 PCR Not Detected (Not Detect.); SARS-CoV-2 PCR Not Detected (Not Detect.)
== END 2025-04-01 11:18 | disposition home or self-care (01) ==
LOC: HO.LAB 11:17
PROVIDERS: PCP Nurse Practitioner Family; Visit Provider Nurse Practitioner Family
DX: J01.10 Acute frontal sinusitis, unspecified (principal); R09.81 Nasal congestion; R51.9 Headache, unspecified; R11.0 Nausea
CPT/HCPCS: 87633

== ENCOUNTER 2025-04-01 11:17 | Outpatient (AMB) | payer BC, SELFPAY ==
[2025-04-01 11:50] VITALS: BP 124/76; PULSE 65; TEMP 36.9; O2SAT 97; BMI 37.0
--- NOTE | 2025-04-01 11:50 | AM.OFFWIN_ITS ---
Intake Vital Signs 04/01/25 11:50 Height 6 ft 6 in Weight 320 lb BMI 37.0 BP 124/76 Blood Pressure Location Rt brachial Position Sitting Pulse 65 Pulse Source Pulse Oximeter Temp 98.5 F Temp Source Oral Pulse Oximetry (%) 97 Oxygen Delivery Method Room Air Intake Visit Reasons: ep sinus infection Intake Note: pt presents with headaches RT [facility], sinus pain, nausea Patient Tobacco Use Status: Never used Tobacco Allergies No Known Allergies Allergy (Verified 04/01/25 11:52) Do you need a note to return to daycare/school/sports/work: No HPI HPI Comments History of Present Illness Details 34 y/o Male patient who presents to the walk in clinic with c/o Sinus congestion and pressure associated with right sided Temporal headaches for a week now. Reports Headaches exacerbated with bending head down. He has been taking OTC Pain medications with no much relief. Reports Nausea but no vomiting. Reports Body chills but no Fevers. Denies any recent contacts. Reports 2 negative COVID Home tests but believes the Kits had . [facility] Medical History (Updated 04/01/25 @ 12:48 by Sandrine Lerma NP) Sinusitis No known health problems Family History Father Diabetes mellitus Mother No problems noted. Brother No problems noted. Brother No problems noted. Social History Housing: House Patient Tobacco Use Status: Never used Tobacco e-Cigarette/Vaping Use: Never Used service: No Current occupational status: employed Cognitive needs: No Hearing needs: No Vision needs: No Review of Systems Const All systems reviewed & are unremarkable except as noted in HPI and below Physical Exam Vital Signs: Last Vital Signs Temp 98.5 F 04/01/25 11:50 Pulse 65 04/01/25 11:50 BP 124/76 04/01/25 11:50 Pulse Ox 97 04/01/25 11:50 Oxygen Delivery Method Room Air 04/01/25 11:50 BMI result Body Mass Index 37.0 Const General: no acute distress Nutritional Appearance: well nourished Orientation/consciousness: patient oriented x3 HEENT Head: Yes normocephalic Ears: external ears normal and TM's normal bilaterally General nose exam: Normal nasal mucous membranes and turbinates present Face and sinus: Yes face symmetric and Yes sinus tenderness Mouth: moist mucous membranes Throat: Yes uvula midline Resp Effort & Inspection: normal respiratory effort, able to speak in complete sentences, no audible wheezes and no cough Auscultation: clear to auscultation bilaterally, no crackles, no rales, no rhonchi and no wheezes Cardio Heart sounds: S1 normal heart sound present and S2 normal heart sound present Neuro General: patient oriented x3, gait normal and moves all extremities Psych Speech and movement: Normal speech and movement present Assessment & Plan Assessment & Plan (1) Sinusitis: Code(s): J32.9 - Chronic sinusitis, unspecified Qualifiers: Sinusitis location: frontal Chronicity: acute Recurrence: non- recurrent Qualified Code(s): J01.10 - Acute frontal sinusitis, unspecified Plan: Will Tx empirically for Sinusitis Ordered Resp Path Panel Acetaminophen for headaches. Rest in a queit dark room. Orders: Orders Resp Pathogen Panel - [facility] Today J32.9 - Chronic sinusitis, unspecified Medications: New amoxicillin-pot clavulanate 875-125 mg 1 tab PO BID 10 tabs 0RF 5 days J32.9 - Chronic sinusitis, unspecified Coding Level of Care Code Est Pt Level 4 (36100) Diagnoses Acute non-recurrent frontal sinusitis J01.10 Sinusitis location: frontal Chronicity: acute Recurrence: non-recurrent Time Spent (min) 20
== END 2025-04-01 12:59 | disposition home or self-care (01) ==
PROVIDERS: PCP Nurse Practitioner Family; Visit Provider Nurse Practitioner Family
DX: J01.10 Acute frontal sinusitis, unspecified (principal)

== ENCOUNTER 2025-05-08 09:14 | Outpatient (AMB) | payer OTHER, SELFPAY ==
--- NOTE | 2025-05-08 09:32 | MHC.OFFVIS ---
Intake Visit Reasons: OV - WC strain of left achilles, DOI 02/06/25 Intake Note: Rl is a 34 year old male who presents today for a follow up on his workers comp injury to his left achilles, DOI: 02/06/25. At his last visit he was suggested to continue boot wear for comfort and is able to add a wedge in boot. He will continue attending physical therapy and remain out of work. He will return in 6-8 weeks for a re-evaluation. Today patient reports he is still having a lot of pain and he is feeling like he is going backwards in his healing. Allergies No Known Allergies Allergy (Verified 05/08/25 09:34) Medication List - Last Reconciled 05/08/25 by Jeramy Potter PA-C albuterol sulfate 90 mcg/actuation (Ventolin HFA) 1 inh inhalation QID PRN amoxicillin-pot clavulanate 875-125 mg 1 tab PO BID 5 days fluticasone propionate 250 mcg/actuation 1 inh inhalation BID ibuprofen 800 mg PO Q8H PRN 30 days ketorolac 10 mg PO TID PRN pantoprazole 20 mg PO DAILY HPI HPI OV - WC strain of left achilles, DOI 02/06/25: Details: 34-year-old gentleman returns to the office today for a follow-up left Achilles injury date of injury 02/06/2025. He is now approximately 3 months from his injury and continues to have significant limitations which are only getting worse with physical therapy. He states with physical therapy he will do exercises like a calf raise on a leg press machine and experiences significant pain weakness and instability of the left Achilles region. He continues to remain out of work. [facility] Medical History (Updated 04/01/25 @ 12:48 by Sandrine Lerma NP) Sinusitis No known health problems Family History Father Diabetes mellitus Mother No problems noted. Brother No problems noted. Brother No problems noted. Social History Housing: House Unable to assess alcohol history related to: Unknown Patient Tobacco Use Status: Never used Tobacco e-Cigarette/Vaping Use: Never Used service: No Current occupational status: employed Cognitive needs: No Hearing needs: No Vision needs: No Review of Systems Const All systems reviewed & are unremarkable except as noted in HPI and below Physical Exam Extrem Other: Left ankle is normal to inspection. There is no palpable defect over the Achilles tendon however he does have significant discomfort along the insertion point. There is significant weakness with plantar flexion. Assessment & Plan Assessment & Plan (1) Strain of left Achilles tendon: Code(s): S86.012A - Strain of left Achilles tendon, initial encounter Category: Medical Plan: Because of his ongoing discomfort I recommend he go back into the boot and take a break from physical therapy for a week to allow his Achilles tendon to rest. I feel he continues to have irritation in his just adding insult to injury with ongoing physical therapy. I also recommend a stat referral to podiatry for further evaluation of his injury. He does have micro tears found on MRI which we have been treating conservatively but it is unclear if he needs treatment with steroid injections or even a debridement of the tendon to aid in his healing. The patient will continue to remain out of work until he is seen by a podiatry for further recommendations. Orders: Referrals Podiatry Referral S86.012A - Strain of left Achilles tendon, initial encounter Coding Level of Care Code Est Pt Level 3 (91670) Complex EM visit Add On G2211 Diagnoses Strain of left Achilles tendon S86.012A
== END 2025-05-08 11:04 | disposition home or self-care (01) ==
LOC: HO.HOS 09:15
PROVIDERS: PCP Nurse Practitioner Family; Visit Provider Physician Assistant
DX: S86.012A Strain of left Achilles tendon, initial encounter (principal)
CPT/HCPCS: 99213; G2211

== ENCOUNTER → 2025-05-08 09:14 | Outpatient (BNVA) | payer OTHER, SELFPAY | PROVIDERS: PCP Nurse Practitioner Family; Visit Provider Physician Assistant | DX: S86.012D Strain of left Achilles tendon, subsequent encounter (principal) | CPT/HCPCS: 99212 ==

== ENCOUNTER 2025-05-14 09:09 | Outpatient (AMB) | payer OTHER, SELFPAY ==
--- NOTE | 2025-05-14 09:20 | A.OFFVIS_ITS ---
Vital Signs 05/14/25 09:21 Height 6 ft 6 in Weight 320 lb BMI 37.0 Intake Visit Reasons: Strain of left Achilles tendon, initial encounter Intake Note: Rl is a 34 year old male who presents today as a new patient for an evaluation of his Achilles tendon strain of the left foot. Patient reports this occurred while he was at work when he was going down the stairs he fell and landed on his left heel. Patient was seen at the ED where he was provided with crutches and post op shoe and he was given Toradol. Patient was referred to ortho where he was given a walking boot and referred to PT. While he was attending PT he saw regression so ortho decided patient hold off on PT until he is seen by our Podiatry office Allergies No Known Allergies Allergy (Verified 05/14/25 09:23) HPI HPI Strain of left Achilles tendon, initial encounter: Details: The patient is a 34-year-old male presenting with persistent pain and functional limitations in the left ankle following an Achilles tendon strain. The injury occurred on February 06 when the patient slipped while descending stairs, resulting in a strain on the Achilles tendon. Initial treatment included an MRI (which showed micro tearing of the Achilles tendon closely insertion), immobiliz ation with a boot and wedges for approximately 4-6 weeks, followed by physical therapy starting in mid-March. The patient states physical therapy is going well until he started doing high impact activities and strengthening which has since cause worsening of his Achilles pain. The patient reports persistent pain and soreness in the Achilles tendon, present at this point at all times however exacerbated by increased activity. He is still doing stretching and mobility exercises at home and attempts to walk 1-1.5 miles per day. 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 [facility] Medical History (Updated 05/14/25 @ 10:06 by Harlan Villaseñor DPM) Sinusitis No known health problems Family History Father Diabetes mellitus Mother No problems noted. Brother No problems noted. Brother No problems noted. Social History Housing: House Patient Tobacco Use Status: Never used Tobacco e-Cigarette/Vaping Use: Never Used service: No Current occupational status: employed Cognitive needs: No Hearing needs: No Vision needs: No Review of Systems Const All systems reviewed & are unremarkable except as noted in HPI and below Physical Exam Vital Signs: BMI result Body Mass Index 37.0 Extrem Other: *Bilateral Lower Extremity Focused Exam Vascular: DP/PT 2/4, CFT<3s to all digits, TG warm to cool, no left ankle edema Derm: No open wounds or clinical signs of infection Neuro: Protective sensation grossly intact to bilateral lower extremities MSK: Mild tenderness on palpation of the Achilles tendon 3-5 cm proximal from its insertion with pain reproduced on maximum dorsiflexion of the left ankle. Ankle dorsiflexion 5 degrees on knee flexion bilaterally. Gait: early heel rise right lower extremity. equal symmetric aarti bilateral lowre extremities. Results Reviewed Results Reviewed: Date of Service: 02/15/25 Procedure(s): MR ankle LT wo con IMPRESSION: Few microtears in the distal Achilles tendon just above the insertion. No retraction or full-thickness tear. Assessment & Plan Assessment & Plan (1) Strain of left Achilles tendon: Code(s): S86.012A - Strain of left Achilles tendon, initial encounter Category: Medical Qualifiers: Encounter type: sequela Qualified Code(s): S86.012S - Strain of left Achilles tendon, sequela Plan: * Discussed etiology of his achilles tendinitis s/p achilles strain 3 months ago. * Instructed patient to discontinue physial therapy for the next 2-3 weeks. * Rx Left ankle MRI to evaluate for worsening achilles tendon microtears. * Rx medrol dose pack * Continue at home stretching and range of motion exercises * Work note given until 06/17/2025 * Follow up in 2 weeks Orders: Orders MR ankle LT wo con Today S86.012S - Strain of left Achilles tendon, sequela Medications: New methylprednisolone (Medrol (Nghia)) Take 6 tablets on day 1, 5 tablets on day 2, 4 tablets on day 3, 3 tablets on day 4, 2 tablets on day 5, and 1 tablet on day 6. 4 mg PO PER PKG DIR 21 ea 0RF achilles tendinitis S86.012A - Strain of left Achilles tendon, initial encounter Coding Level of Care Code New Pt Level 4 (02054) Diagnoses Strain of left Achilles tendon, sequela S86.012S Encounter type: sequela Time Spent (min) 40
[2025-05-14 09:21] VITALS: BMI 37.0
== END 2025-05-14 10:06 | disposition home or self-care (01) ==
PROVIDERS: PCP Nurse Practitioner Family; Visit Provider Student in an Organized Health Care Education/Training Program
DX: S86.012S Strain of left Achilles tendon, sequela (principal)
CPT/HCPCS: 99204

== ENCOUNTER → 2025-05-14 09:09 | Outpatient (BNVA) | payer OTHER, SELFPAY | PROVIDERS: PCP Nurse Practitioner Family; Visit Provider Student in an Organized Health Care Education/Training Program | DX: S86.012S Strain of left Achilles tendon, sequela (principal); X58.XXXS Exposure to other specified factors, sequela; Y92.9 Unspecified place or not applicable; Y93.9 Activity, unspecified; Y99.9 Unspecified external cause status | CPT/HCPCS: 99202 ==

== ENCOUNTER 2025-05-17 19:31 | Outpatient (REF) | payer OTHER, SELFPAY ==
--- NOTE | ~2025-05-17 | MR_ITS ---
EXAM: MR Ankle Lt Wo Con TECHNIQUE: Multiplanar multisequence imaging performed through a lower extremity joint without contrast. INDICATION: S86.012S - Strain of left Achilles tendon, sequela PRIOR: None FINDINGS: Achilles tendon / plantar fascia: Achilles tendon and plantar fascia are intact without thickening or abnormal signal. Lateral ankle ligaments: This is a blank ligaments are intact. Talofibular and calcaneofibular ligaments are intact. Deltoid ligament complex: Deltoid ligament complex is intact. Ankle tendons: Peroneal, medial, and the anterior ankle tendons are intact without abnormal signal or size changes. Talar Dome: Talar dome is intact without evidence of an osteochondral lesion or other abnormality. Sinus tarsi: The physiologic architecture of sinus tarsi is preserved. Bone marrow: Bone marrow signal is physiologic. Articular cartilage: There are no articular cartilage defects. Soft Tissues: There are no soft tissue masses, fluid collections, or other abnormalities. MR/MR ankle LT wo con IMPRESSION: Unremarkable MR left ankle. Specifically, Achilles tendon is intact without thickening or signal change. Electronically signed by: Bowen Causey MD 05/20/2025 11:33 AM EST
== END 2025-05-17 19:32 | disposition home or self-care (01) ==
LOC: HO.MRI 19:31
PROVIDERS: Visit Provider Student in an Organized Health Care Education/Training Program
DX: S86.012S Strain of left Achilles tendon, sequela (principal)
CPT/HCPCS: 73721

== ENCOUNTER → 2025-05-17 19:39 | Outpatient (BNV) | payer OTHER, SELFPAY | PROVIDERS: Visit Provider Radiology Diagnostic Radiology | DX: S86.012S Strain of left Achilles tendon, sequela (principal) | CPT/HCPCS: 73721 ==

== ENCOUNTER 2025-06-03 15:18 | Outpatient (AMB) | payer OTHER, SELFPAY ==
--- NOTE | 2025-06-03 15:32 | MHC.OFFVIS ---
Vital Signs 06/03/25 15:33 Height 6 ft 6 in Weight 320 lb BMI 37.0 Intake Visit Reasons: MRI review left achilles Intake Note: Patient is a 34 year old male presenting today for a follow up to review his Left Achilles MRI results. Patient reports it is sore and the same as the last time he was here. He is wondering what next course of action is. Allergies No Known Allergies Allergy (Verified 06/03/25 15:34) HPI HPI MRI review left achilles: Details: The patient is a 34-year-old male returns for MRI review for persistent pain and functional limitations in the left ankle. He stopped physical therapy for 2 weeks, which has not helped his pain. He is still continuing daily activities. History: The patient's left ankle pain started following an Achilles tendon strain. The injury occurred on February 06 when the patient slipped while descending stairs, resulting in a strain on the Achilles tendon. Initial treatment included an MRI (which showed micro tearing of the Achilles tendon close to the insertion), immobilization with a boot and wedges for approximately 4-6 weeks, followed by physical therapy starting in mid-March. The patient states physical therapy is going well until he started doing high impact activities and strengthening which has since cause worsening of his Achilles pain. The patient reports persistent pain and soreness in the Achilles tendon, present at this point at all times however exacerbated by increased activity. 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 [facility] Medical History (Updated 05/14/25 @ 10:06 by Harlan Villaseñor DPM) Sinusitis No known health problems Family History Father Diabetes mellitus Mother No problems noted. Brother No problems noted. Brother No problems noted. Social History Housing: House Patient Tobacco Use Status: Never used Tobacco e-Cigarette/Vaping Use: Never Used service: No Current occupational status: employed Cognitive needs: No Hearing needs: No Vision needs: No Review of Systems Const All systems reviewed & are unremarkable except as noted in HPI and below Physical Exam Vital Signs: BMI result Body Mass Index 37.0 Extrem Other: *Bilateral Lower Extremity Focused Exam Vascular: DP/PT 2/4, CFT<3s to all digits, TG warm to cool, no left ankle edema Derm: No open wounds or clinical signs of infection Neuro: Protective sensation grossly intact to bilateral lower extremities MSK: Mild tenderness on palpation of the Achilles tendon 3-5 cm proximal from its insertion with pain reproduced on maximum dorsiflexion of the left ankle. Ankle dorsiflexion 5 degrees on knee flexion bilaterally. Gait: early heel rise right lower extremity. equal symmetric aarti bilateral lower extremities. Results Reviewed Results Reviewed: Date of Service: 02/15/25 Procedure(s): MR ankle LT wo con IMPRESSION: Few microtears in the distal Achilles tendon just above the insertion. No retraction or full-thickness tear. Date of Service: 05/17/25 Procedure(s): MR ankle LT wo con IMPRESSION: Unremarkable MR left ankle. Specifically, Achilles tendon is intact without thickening or signal change. My read: moderate thickening of the achilles tendon (6mm) approximately 3.5-8.5cm proximal to its insertion with improved insertional interstitial micro-tearing. Assessment & Plan Assessment & Plan (1) Strain of left Achilles tendon: Code(s): S86.012A - Strain of left Achilles tendon, initial encounter Category: Medical Qualifiers: Encounter type: sequela Qualified Code(s): S86.012S - Strain of left Achilles tendon, sequela Plan: Discussed etiology of his achilles tendinitis s/p achilles strain 3-4 months ago. Instructed patient to restart physial therapy for the next 2-3 weeks. Reviewed Left ankle MRI which shows persistent achilles tendon thickening but improved microtearing. Continue at home stretching and range of motion exercises Work note given until July 2025. Discussed further treatment options if he fails PT/conservative treatment, which includes isolated PRP injection versus Tenex debridement of the Achilles tendon + PRP. Discussed postoperative course which would include 3 weeks of protected weight-bearing in a cam boot. Follow up in 1 month Coding Level of Care Code Est Pt Level 4 (72822) Diagnoses Strain of left Achilles tendon, sequela S86.012S Encounter type: sequela Time Spent (min) 25
[2025-06-03 15:33] VITALS: BMI 37.0
== END 2025-06-03 15:59 | disposition home or self-care (01) ==
LOC: HO.HPODS 15:18
PROVIDERS: PCP Nurse Practitioner Family; Visit Provider Student in an Organized Health Care Education/Training Program
DX: S86.012S Strain of left Achilles tendon, sequela (principal)
CPT/HCPCS: 99214

== ENCOUNTER → 2025-06-03 15:18 | Outpatient (BNVA) | payer OTHER, BC, SELFPAY | PROVIDERS: PCP Nurse Practitioner Family; Visit Provider Student in an Organized Health Care Education/Training Program | DX: S86.012S Strain of left Achilles tendon, sequela (principal); X58.XXXS Exposure to other specified factors, sequela | CPT/HCPCS: 99212 ==